=== PATIENT | male | born 1960 | race Caucasian/White ===

== ENCOUNTER 2017-03-20 09:59 | Outpatient (CLI) | payer BC ==
--- NOTE | 2017-03-20 14:47 | CT ---
CT OF THE CHEST WITH CONTRAST: Date: 03/20/17 COMPARISON: 12/28/16. HISTORY: Lung cancer. TECHNIQUE: Multiple contiguous axial images were obtained in a CT of the chest with contrast. Coronal reformats were performed. FINDINGS: No pulmonary nodules or masses are seen. No pleural effusion or pneumothorax seen. There is an enlarged lymph node in the right paratracheal region. This has decreased in size compared to the prior examination and now measures 1.9 x 1.5 x 2.7 cm in size. There is a separate nodule adj acent to this larger lymph node measuring 8.0 mm in size. This is also unchanged. No other enlarged o r pathologic mediastinal or hilar lymph nodes are seen. There are large cysts in both kidneys. The other visualized subdiaphragmatic structures are unremarka ble. Degenerative changes are seen in the spine. No suspicious osseous abnormalities are present. The re is a right-sided MediPort with its tip in the superior vena cava. IMPRESSION: 1. Right-sided paratracheal lymphadenopathy has slightly decreased in size. This may represent a par tial response to chemotherapy. 2. Bilateral renal cysts. POS: [facility]
[2017-03-20] MEDS ORDERED: Iopamidol 370 76% 100 ML VIAL ONE (17:20)
== END 2017-03-20 10:00 | disposition home or self-care (01) ==
LOC: CT 09:59
PROVIDERS: ATTEND Internal Medicine Hematology & Oncology
DX: C34.01 Malignant neoplasm of right main bronchus (principal); C80.0 Disseminated malignant neoplasm, unspecified; Z51.89 Encounter for other specified aftercare; N28.1 Cyst of kidney, acquired; R11.0 Nausea; R59.0 Localized enlarged lymph nodes
CPT/HCPCS: 71260

== ENCOUNTER 2017-06-12 16:58 | Inpatient (IN) | payer BC ==
[2017-06-12 17:34] LABS: #Basophils 0.1 thou/uL (0.0-0.2); #Lymphocytes 1.5 thou/uL (1.20-3.40); #Monocytes 0.8 thou/uL (0.11-0.59); #Neutrophils 5.6 thou/uL (1.40-6.50); %Basophils 0.6 % (0.0-1.0); %Eosinophils 0.4 % (0.0-10.0); %Lymphocytes 18.3 % (21.0-51.0); %Monocytes 10.2 % (0.0-10.0); %Neutrophils 70.5 % (42.0-75.0); Mean Corpuscular HGB CONC 35.9 g/dL (32.0-36.0); Mean Corpuscular Hemoglobin 34.1 pg (27.0-31.0); Mean Corpuscular Volume 94.7 fl (80.0-94.0); Mean Platelet Volume 7.2 fL (7.4-10.4); Platelet Count 193 thou/uL (130-400); RBC Distribution Width 10.7 % (11.5-14.5); Red Blood Cell (RBC) Count 3.53 mill/uL (4.70-6.10)
[2017-06-12 17:58] LABS: ALT (SGPT) 29 U/L (8-55); AST (SGOT) 16 U/L (5-34); Albumin 4.3 g/dL (3.5-5.0); Alkaline Phosphatase 63 U/L (40-150); Anion Gap 15 mmol/L (10-20); BUN (Urea Nitrogen) 10 mg/dL (8.4-25.7); Bilirubin, Total 0.9 mg/dL (0.2-1.2); CK (CPK) 135 U/L (30-200); Calc. Creatinine Clearance 0 mL/min (70-130); Calcium 9.4 mg/dL (7.8-10.44); Carbon Dioxide 21 mmol/L (22-29); Chloride 104 mmol/L (98-107); Estimated GFR-MDRD Greater than 90; Globulin 3.4 g/dL (2.4-3.5); Glucose 118 mg/dL (70-105); Potassium 3.9 mmol/L (3.5-5.1); Protein, Total 7.7 g/dL (6.0-8.3); Sodium 136 mmol/L (136-145)
[2017-06-12 18:00] LABS: CKMB 0.5 ng/mL (0-6.6); Troponin I Less than 0.010 ng/mL (< 0.028)
[2017-06-12] MEDS ORDERED: Acetaminophen/Codeine 30-300mg Tablet ONE (18:08)
[2017-06-12] MEDS ORDERED: Ketorolac Tromethamine 30 MG/ML VIAL ONE (18:08)
[2017-06-12] MEDS ORDERED: Piperacillin/Tazobactam 3.375 GM in Sodium Chloride 0.9% 100 ML IVPB SCH (18:15)
--- NOTE | 2017-06-12 18:29 | RAD ---
CHEST 1 VIEW: Date: 06/12/17 HISTORY: Chest pain. COMPARISON: Chest radiograph dated 04/25/16. FINDINGS: Port catheter tip is at the lower SVC. Right basilar infiltrate, new. Small right effusion. No pneumo thorax. Old left-sided rib fractures. Left lung is relatively clear. Mild right paratracheal soft tissue prominence. IMPRESSION: 1. New right lower lobe air space opacity suggesting pneumonia. Follow-up recommended. 2. Right paratracheal soft tissue fullness suggesting adenopathy. POS: [facility]
[2017-06-12] MEDS ORDERED: Albuterol Sulfate 2.5 mg/3 ml Neb NEB PRN (19:12)
--- NOTE | 2017-06-12 20:29 | HP ---
DATE OF ADMISSION: 06/12/2017 CHIEF COMPLAINT: Chest pain. HISTORY OF PRESENT ILLNESS: This is a 57-year-old white male with a known history of a small cell dre ng cancer diagnosed more than 3 years ago when he had a headache and was diagnosed with a brain tumor . Following a biopsy, it was noted that the patient had metastatic lesions from the small cell cance r. The patient is on pilot point based chemotherapy until last year September, it was changed to Opdivo whic h he takes twice a month infusion. The patient sees Dr. Be as oncologist and for the past few d ays, he was noticing that he was having some chest pain associated with some shortness of breath with no fever. Today, he was noted to have a fever of 100.1 and with nonproductive cough with worsening chest pain which is pleuritic in nature, the pain is more in the right precordium and it radiates to the right shoulder and sometimes to the right side of the jaw. The patient is here along with his wi fe. He is alert and oriented, did not appear to be in any acute distress. He is not short of breath at this time. His saturations have been 99% on room air. He denies having any nausea, vomiting, di arrhea or constipation. Denies having any dizziness, no headache. No fever with chills or rigors at home. PAST MEDICAL HISTORY: 1. 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 2. History of hypertension. PAST SURGICAL HISTORY: The patient had a history of craniotomy, brain tumor removal following with r adiation therapy. Otherwise, no other surgical procedures in the past. SOCIAL HISTORY: The patient is a known smoker. Smoked one pack per day until 3 years ago when he wa s diagnosed with brain cancer. He does drink alcohol occasionally. No history of illicit drug use. FAMILY HISTORY: Mother with pancreatic cancer. 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 REVIEW OF SYSTEMS: All 12 systems are reviewed with the patient thoroughly and found to be negative at this time except the ones described in HPI. The following complete review of systems was negative , unless otherwise mentioned in the HPI or below: Constitutional: Weight loss or gain, sense of wel l-being, ability to conduct usual activities, exercise tolerance. Skin/Breast: Rash, itching, pradhan es in hair growth or loss, nail changes, breast lumps, tenderness, swelling, nipple discharge. Eyes: Vision, double vision, tearing, blind spots, pain. ENT/Mouth: Headaches (location, time of onset, duration, precipitating factors), vertigo, lightheade dness, injury. Vision, double vision, tearing, blind spots, pain, nose bleeding, colds, obstruction, discharge, dental difficulties, gingival bleeding, dentures, neck stiffness, pain, tenderness, masses in thyroid or other areas. Cardiovascular: Precordial pain, substernal distress, palpitations, syn cope, dyspnea on exertion, orthopnea, nocturnal paroxysmal dyspnea, edema, cyanosis, hypertension, he art murmurs, varicosities, phlebitis, claudication. Respiratory: Pain, shortness of breath, wheezin g, stridor, cough, hemoptysis, fever or night sweats. Gastrointestinal: Poor appetite, dysphagia, i ndigestion, abdominal pain, heartburn, eructation, nausea, vomiting, hematemesis, jaundice, constipat ion, or diarrhea, abnormal stools (clyde-colored, tarry, bloody, greasy, foul smelling), flatulence, h emorrhoids, recent changes in bowel habits. Genitourinary: Urgency, frequency, dysuria, nocturia, h ematuria, polyuria, oliguria, unusual (or change in) color of urine, stones, hesitancy, change in siz e of stream, dribbling, acute retention or incontinence, libido, potency. Musculoskeletal: Pain, sw elling, redness or heat of muscles or joints, limitation, of motion, muscular weakness, atrophy, cram ps. Neurologic/Psychiatric: Convulsions, paralyses, tremor, incoordination, parasthesias, difficult ies with memory of speech, sensory or motor disturbances, or muscular coordination (ataxia, tremor), emotional problems, anxiety, depression, previous psychiatric care, unusual perceptions, hallucinatio ns. Allergy/Immunologic: Skin rash, anemia, bleeding tendency, polydipsia, polyuria, intolerance to heat or cold. ALLERGIES: Patient has allergy to IODINATED CONTRAST, ORAL and IV DYES. HOME MEDICATIONS: 1. Cetirizine 10 mg p.o. p.r.n. 2. Zantac 150 mg p.o. b.i.d. 3. Tylenol #3. PHYSICAL EXAMINATION: VITAL SIGNS: Blood pressures were 110/80, heart rate is 88, respiratory rate 18, saturation is 98% o n room air. GENERAL: The patient is moderately built and moderately nourished. He does not appear to have any a cute distress at this time. HEENT: Atraumatic, normocephalic, PERRLA. Extraocular muscles were intact. Oral mucosa pink and mo ist. CARDIOVASCULAR: S1, S2 normal. No murmurs, rubs or gallops. LUNGS: Bilateral air entry was equal. No wheezing, no crackles. ABDOMEN: Soft, nontender, no guarding, no rebound tenderness. Bowel sounds normal. MUSCULOSKELETAL: No calf tenderness. No pedal edema. No joint tenderness, no joint swelling. SKIN: No cyanosis, no erythema, no rash, no pallor. NEUROLOGIC: Cranial nerve examination II-XII intact. No focal deficits are noted at this time. PSYCHIATRIC: No signs of suicidal ideation. No signs of mike. LYMPHADENOPATHY: No evidence of any generalized lymph nodes were noted. Axillary and cervical lymph nodes were checked were normal. LABORATORY DATA: WBC 8.0, hemoglobin is 12.0, platelets 193. Sodium 136, potassium 3.9, chloride is 104, BUN is 10, creatinine 0.83, blood sugar is 118. Troponin 0.010. A chest x-ray was done showing an evidence of new right lower lobe airspace opacity suggesting pneumo heber, right paratracheal soft tissue fullness suggesting adenopathy was also noted. ASSESSMENT: 1. Acute right lung pneumonia. 2. Acute right lung pneumonia in immunocompromised patient. 3. History of small cell cancer, on chemotherapy. 4. Hypertension. 5. Pleuritic chest pain. PLAN: 1. Plan is to closely monitor this patient as the patient is immunocompromised because of the chemot herapy and patient would not have a good immune response at this time. We will treat the patient wit h IV antibiotics to cover Pseudomonas. We will start the patient on Levofloxacin 750 mg IV daily and also cefepime 2 grams q.12 hours. We will continue the DuoNeb nebulizer treatments every 4 hours an d albuterol nebs every 2 hours as needed. 2. We will send for blood cultures and sputum cultures. 3. Patient has severe pleuritic chest pain. We will treat with Morrill as the patient's pain was cont rolled with Tylenol. We will do Morrill or Tylenol as needed. We will do a PT and OT evaluation in th e morning. 4. DVT prophylaxis. Lovenox 40 mg subcu daily. Dictating physician, Enio Diaz, has spent 75 minutes with this patient.
[2017-06-12] MEDS ORDERED: Cefepime 2 GM in Sodium Chloride 0.9% 100 ML IVPB SCH (21:12)
[2017-06-12] MEDS ORDERED: Ondansetron HCl/PF 4 MG/2 ML Vial IVP PRN (21:12)
[2017-06-12] MEDS ORDERED: Docusate 100 MG CAP PO SCH (21:30)
[2017-06-12] MEDS ORDERED: Famotidine/PF 20 mg/2ml Vial SLOW IVP SCH (21:30)
[2017-06-12] MEDS: HYDROcodone/Acetaminophen 5/325 mg Tablet PO PRN (21:35)
[2017-06-12] MEDS: Sodium Chloride 0.9% 1,000 ML IV SCH (21:36)
[2017-06-12] MEDS: Cefepime 2 GM, Syringe 2.5 ML in Sodium Chloride 0.9% 10 ML SLOW IVP SCH (22:58)
[2017-06-13 00:36] VITALS: BMI 32.3
[2017-06-13] MEDS ORDERED: Acetaminophen/Codeine 30-300mg Tablet PO SCH (01:00)
[2017-06-13] MEDS: Sodium Chloride 0.9% 1,000 ML IV SCH ×2 (05:28→08:36)
[2017-06-13 06:06] LABS: #Lymphocytes 0.9 thou/uL (1.20-3.40); #Monocytes 0.7 thou/uL (0.11-0.59); #Neutrophils 4.5 thou/uL (1.40-6.50); %Eosinophils 0.5 % (0.0-10.0); %Monocytes 11.3 % (0.0-10.0); %Neutrophils 73.2 % (42.0-75.0); Anion Gap 12 mmol/L (10-20); BUN (Urea Nitrogen) 11 mg/dL (8.4-25.7); Calc. Creatinine Clearance 131 mL/min (70-130); Calcium 8.4 mg/dL (7.8-10.44); Carbon Dioxide 23 mmol/L (22-29); Chloride 103 mmol/L (98-107); Estimated GFR-MDRD 87; Glucose 111 mg/dL (70-105); Hemoglobin 9.6 g/dL (14.0-18.0); Mean Corpuscular HGB CONC 34.9 g/dL (32.0-36.0); Mean Corpuscular Hemoglobin 33.6 pg (27.0-31.0); Mean Corpuscular Volume 96.2 fl (80.0-94.0); Mean Platelet Volume 7.1 fL (7.4-10.4); Platelet Count 139 thou/uL (130-400); Potassium 3.9 mmol/L (3.5-5.1); RBC Distribution Width 10.7 % (11.5-14.5); Red Blood Cell (RBC) Count 2.86 mill/uL (4.70-6.10); Sodium 134 mmol/L (136-145); White Blood Cell (WBC) Count 6.1 thou/uL (4.8-10.8)
[2017-06-13] MEDS: HYDROcodone/Acetaminophen 5/325 mg Tablet PO PRN ×4 (06:16→22:14)
[2017-06-13] MEDS ORDERED: Morphine 5 MG/ML SYRINGE SLOW IVP PRN (07:42)
[2017-06-13] MEDS: Famotidine/PF 20 mg/2ml Vial SLOW IVP SCH ×2 (07:45→20:24)
[2017-06-13] MEDS: Docusate 100 MG CAP PO SCH ×2 (07:45→20:24)
[2017-06-13] MEDS: Cefepime 2 GM, Syringe 2.5 ML in Sodium Chloride 0.9% 10 ML SLOW IVP SCH ×2 (08:26→22:14)
[2017-06-13] MEDS ORDERED: Enoxaparin Sodium 40 MG/0.4 ML SYRINGE SC SCH (09:00)
--- NOTE | 2017-06-13 13:48 | PDOC.PN ---
- Subjective Encounter Start Date: 06/13/17 Encounter Start Time: 13:00 Patient is seen today, alert and oriented. He c/o persistant Chest pain Right Precordium, Pleuritic pain 10/10 he says worse on breathing. Likley PE/ or pneumonia with pleurisy. - Objective Resuscitation Status: Resuscitation Status FULL:Full Resuscitation MAR Reviewed: Yes Vital Signs & Weight: Vital Signs (12 hours) Temp Pulse Pulse Pulse Pulse Resp BP 06/13/17 13:30 99.5 F 124 H 18 06/13/17 12:00 99.3 F 78 18 06/13/17 10:18 100 14 06/13/17 08:50 99.8 F H 06/13/17 08:00 98.8 F 102 H 22 H 06/13/17 07:51 100.4 F H 102 H 22 H 06/13/17 07:07 106 H 109 H 104 H 122/80 06/13/17 06:12 93 14 06/13/17 04:00 100.1 F H 105 H 20 06/13/17 02:19 12 BP BP BP Pulse Ox Pulse Ox Pulse Ox Pulse Ox 06/13/17 13:30 162/94 H 94 L 06/13/17 12:00 136/85 96 06/13/17 10:18 06/13/17 08:50 06/13/17 08:00 06/13/17 07:51 131/84 92 L 06/13/17 07:07 113/82 131/84 90 L 92 L 92 L 06/13/17 06:12 94 L 06/13/17 04:00 112/74 92 L 06/13/17 02:19 Weight Weight 225 lb I&O: 06/12/17 06/13/17 06/14/17 06:59 06:59 06:59 Intake Total 1750 Balance 1750 Result Diagrams: 06/13/17 04:55 06/13/17 04:55 Radiology Reviewed by me: Yes Phys Exam - Physical Examination HEENT: PERRLA, moist MMs Neck: no nodes, no JVD Respiratory: no rales, no rhonchi, wheezing present, clear to auscultation bilateral Cardiovascular: RRR, no significant murmur Gastrointestinal: soft, non-tender Musculoskeletal: no edema, pulses present Neurological: non-focal, normal sensation Dx/Plan (1) Acute respiratory failure with hypoxia Code(s): J96.01 - ACUTE RESPIRATORY FAILURE WITH HYPOXIA Status: Acute Comment: PT is on Nasal Canula 2 literes, Likely from hypoventilation due to pleurtitic pain, but also could be PE, with H/o Small cell Ca on Chemotherapy. (2) Pneumonia involving right lung Code(s): J18.9 - PNEUMONIA, UNSPECIFIED ORGANISM Status: Acute Qualifiers: Lung location: middle lobe of lung Comment: Pt will be continue On IV antibitiotics Cefepime and Levofloxacin , Will continue with neb treamtent, Will repeat Chest xray to look for any worseing of Pneumonia , Will consult Pulmonary for any further recommedations,. (3) Pleurisy without effusion Code(s): R09.1 - PLEURISY Status: Acute Comment: Pain is 10/10 will do morphine 3-4 mg Iv prn. (4) Pulmonary embolism and infarction Code(s): I26.99 - OTHER PULMONARY EMBOLISM WITHOUT ACUTE COR PULMONALE Status : Acute Comment: ordered CT chest with controast, as ptis allergic to Iodone contrast, will do Benedryl/ prednisolone, CT will be delayed, so will start emperically on Lovenox 1 mg/ kg BID a spt is high risk for PE or pulmonary infarction. (5) Anemia Code(s): D64.9 - ANEMIA, UNSPECIFIED Status: Acute Comment: Likely Dilutional or marrow Suppresion, will check for iron levels, No other source of Bkeeding noted. - Plan cont current plan of care, continue antibiotics, PT/OT, social human services assistants, respiratory therapy, incentive spirometry, DVT proph w/lovenox * . - Discharge Day Encounter end time: 13:35 Review of Systems - Review of Systems Constitutional: negative: fever, chills, sweats, weakness, malaise, other Eyes: negative: Pain, Vision Change, Conjunctivae Inflammation, Eyelid Inflammation, Redness, Other Respiratory: Cough, Shortness of Breath, Pleuritic Pain Cardiovascular: negative: chest pain, palpitations, orthopnea, paroxysmal nocturnal dyspnea, edema, light headedness, other Gastrointestinal: negative: Nausea, Vomiting, Abdominal Pain, Diarrhea, Constipation, Melena, Hematochezia, Other Genitourinary: negative: Dysuria, Frequency, Incontinence, Hematuria, Retention , Other Musculoskeletal: negative: Neck Pain, Shoulder Pain, Arm Pain, Back Pain, Hand Pain, Leg Pain, Foot Pain, Other Skin: negative: Rash, Lesions, Aric, Bruising, Other - Medications/Allergies Allergies/Adverse Reactions: Allergies Allergy/AdvReac Type Severity Reaction Status Date / Time Iodinated Contrast- Oral and Allergy Mild ITCHING, Verified 04/22/16 11:51 IV Dye THROAT [Iodinated Contrast Media - TINGLING IV Dye] No Known Drug Allergies Allergy Verified 04/22/16 11:51 Medications: Current Medications Hydrocodone Bitart/Acetaminophen ([place] 5/325) 1 tab PO Q4H PRN PRN Reason: Moderate Pain (4-6) Last Admin: 06/13/17 06:16 Dose: 1 tab Albuterol Sulfate (Ventolin) 2.5 mg NEB Q2H PRN PRN Reason: Wheezing Albuterol/Ipratropium (Duoneb) 3 ml NEB [id number] [facility] Last Admin: 06/13/17 10:18 Dose: 3 ml Docusate Sodium (Colace) 100 mg PO BID [facility] Last Admin: 06/13/17 07:45 Dose: 100 mg Enoxaparin Sodium (Lovenox) 40 mg SC 0900 [facility] Famotidine (Pepcid) 20 mg SLOW IVP Q12HR [facility] Last Admin: 06/13/17 07:45 Dose: 20 mg Levofloxacin 750 mg/ Device 150 mls @ 100 mls/hr IVPB 2200 [facility] Last Admin: 06/12/17 21:35 Dose: 150 mls Sodium Chloride (Normal Saline 0.9%) 1,000 mls @ 100 mls/hr IV .Q10H [facility] Last Admin: 06/13/17 08:36 Dose: 1,000 mls Cefepime HCl 2 gm/ Syringe 2.5 (ml/ Sodium Chloride) 12.5 mls @ 150 mls/hr SLOW IVP 1000,2200 [facility] Last Admin: 06/13/17 08:26 Dose: 12.5 mls Morphine Sulfate (Morphine) 4 mg SLOW IVP Q4H PRN PRN Reason: Pain Last Admin: 06/13/17 08:24 Dose: 4 mg Ondansetron HCl (Zofran) 4 mg IVP Q6H PRN PRN Reason: Nausea/Vomiting Sodium Chloride (Flush - Normal Saline) 10 ml IVF PRN PRN PRN Reason: Saline Flush
--- NOTE | 2017-06-13 14:20 | RAD ---
RADIOGRAPH CHEST 1 VIEW: Date: 06/13/17 Time: 1339 HOURS HISTORY: 57-year-old male with chest pain. COMPARISON: 06/12/17 at 1708 hours. FINDINGS: The previously demonstrated right lower lobe air space density has become somewhat more dense. It now has a sharply demarcated, transversely oriented superior border, suggesting that this probably repre sents atelectasis. There is a greater degree of elevation of the right hemidiaphragm now than before, supporting the diagnosis of atelectasis. Right subclavian implantable vascular access port remains w ith distal tip at the SVC/right atrial junction. No pulmonary edema or pneumothorax. The left upper l obe is clear. There has been interval development of streaky air space densities at the medial basila r aspect of the retrocardiac left lower lobe. IMPRESSION: 1. Interval progression of a large region of right lower lobe atelectasis. 2. Interval development of small pulmonary density at the medial base of the left lower lobe, perhap s also representing atelectasis. JN [] POS: [facility]
[2017-06-13 14:47] LABS: Reticulocyte Count 1.6 % (0.5-1.5)
[2017-06-13 14:51] LABS: #Lymphocytes 0.9 thou/uL (1.20-3.40); #Monocytes 1.1 thou/uL (0.11-0.59); #Neutrophils 8.4 thou/uL (1.40-6.50); %Basophils 0.3 % (0.0-1.0); %Monocytes 10.1 % (0.0-10.0); %Neutrophils 80.5 % (42.0-75.0); Hemoglobin 10.6 g/dL (14.0-18.0); Mean Corpuscular HGB CONC 34.3 g/dL (32.0-36.0); Mean Corpuscular Hemoglobin 33.4 pg (27.0-31.0); Mean Corpuscular Volume 97.4 fl (80.0-94.0); Mean Platelet Volume 7.1 fL (7.4-10.4); Platelet Count 160 thou/uL (130-400); RBC Distribution Width 10.9 % (11.5-14.5); Red Blood Cell (RBC) Count 3.17 mill/uL (4.70-6.10); White Blood Cell (WBC) Count 10.4 thou/uL (4.8-10.8)
[2017-06-13 15:06] LABS: Iron 28 ug/dL (65-175); Iron Binding Capacity, Total 236 mcg/dL (261-462)
[2017-06-13] MEDS ORDERED: Acetaminophen 500 MG TAB PO PRN (15:30)
[2017-06-13] MEDS: Enoxaparin Sodium 100 MG/ML SYRINGE SC SCH (15:55)
--- NOTE | 2017-06-13 17:37 | CON ---
DATE OF CONSULTATION: 06/13/2017 A 70 minutes time was spent performing this consultation. Over that 70 minutes, 50% of that time was spent with the patient and/or on the patient's unit in the Hospital. REASON FOR CONSULTATION: Chest pain and pneumonia. HISTORY OF PRESENT ILLNESS: Mr. Alejandro is a pleasant 57-year-old male who is able to provide his tory to me. His is at the bedside. She also is able to give some history to me. I have also r eviewed the notes from Dr. Diaz in the chart. This gentleman was admitted to the hospital yesterday with chest pain that started 3 days prior to ad mission. He has had a cough that has been nonproductive in nature. Chest pain has been isolated to the right precordial area inferiorly and also to the right shoulder area. He has had low grade fever up to 100.8. Prior to this, he has been feeling okay. His pulmonary history is remarkable for diagnosis of small cell lung cancer/neuroendocrine tumor in h is mediastinum with metastasis to the brain. He had resection of the brain component of the tumor of 2013. He is followed by Dr. Be. PAST MEDICAL HISTORY: 1. Neuroendocrine cancer with metastasis to the brain. 2. Hypertension. PAST SURGICAL HISTORY: Craniotomy for brain tumor resection. SOCIAL HISTORY: Patient smoked 1 pack per day until about 4 years ago. He has continued to smoke li ghtly on and off until 04/2017 when he quit completely. He very occasionally drinks alcohol. He is disabled secondary to his cancer diagnosis. He has no history of drug use. FAMILY MEDICAL HISTORY: Remarkable for mother with pancreatic cancer. MEDICATIONS: Prior to admission, cetirizine 10 mg daily as needed, Zantac 150 mg twice daily, Tyleno l #3 as needed for pain. REVIEW OF SYSTEMS: Twelve point review of systems otherwise negative except stated in the history of present illness. PHYSICAL EXAMINATION: VITAL SIGNS: Temperature was 100.8, pulse 120, respirations 18, O2 sat 92% on room air, improved to about 94% on 2 liters, blood pressure 162/94. GENERAL: He is awake and alert. He is in no acute distress. HEENT: Pupils react. Sclerae anicteric. Oropharynx clear. NECK: Without adenopathy. No palpable lymph nodes, no JVD, no thyromegaly. CARDIAC: S1, S2, tachycardic without murmur, rub or gallop. LUNGS: Clear to auscultation without wheezing or rhonchi. No dullness to percussion at bases. ABDOMEN: Soft, nontender, nondistended. No hepatosplenomegaly. EXTREMITIES: No clubbing, cyanosis or edema. PSYCHIATRY: He is alert and oriented x3. NEUROLOGIC: He moves all 4 extremities without difficulty. SKIN: Shows no obvious lesions. LABORATORY DATA AND X-RAY FINDINGS: White blood cell count 10.4, hemoglobin 10, hematocrit 30, plate let count 160. D-dimer 1.7. Sodium 134, potassium 3.9, chloride 103, CO2 23, BUN 11, creatinine 0.9 , glucose 111. Troponin 0.01. Flu swab was negative for Flu A and B and blood cultures show no grow th to date. I reviewed his most recent chest x-ray film from today. He has right lower lobe atelect asis versus infiltrate. No obvious effusion. ASSESSMENT: 1. Right lower lobe pneumonia. 2. Pleuritic chest pain. 3. History of neuroendocrine tumor. RECOMMENDATIONS: The patient is currently on broad spectrum IV antibiotics, which include cefepime a nd Levaquin. That is probably more than appropriate coverage. He is receiving low flow oxygen thera py. He is scheduled to undergo CT of the chest later today to rule out pulmonary embolism. I think that is a reasonable intervention. He is empirically on anticoagulation through the hospitalist lili buckley the result of the CT pulmonary angiogram is known. There is a late in the CT pulmonary angiogram s econdary to the fact that the patient is allergic to CONTRAST and is having to take a contrast prep. The current tachycardia is likely due to the fever. He will be prescribed some Tylenol to see if j[place] t will help. Thank you for the referral. I will be happy to follow with you.
[2017-06-13] MEDS: predniSONE 50 MG TAB PO SCH (20:24)
--- NOTE | 2017-06-13 20:32 | CON ---
DATE OF CONSULTATION: 06/13/2017 REASON FOR CONSULTATION: Neuroendocrine carcinoma. HISTORY OF PRESENT ILLNESS: Mr. Alejandro is a pleasant 57-year-old gentleman who was diagnosed wit h neuroendocrine carcinoma of the unknown primary with mets to the brain in 2014 was suspected to be a lung primary. He underwent treatment with carboplatin and DIRECTOR OF SOCIAL WORK-16. He went into complete remission, but reoccurred in late 2015. He underwent chemotherapy again, but had progression on CT and he was started on Opdivo immunotherapy in 09/2016. He has remained on Opdivo since that time with stable di sease. He has right paratracheal lymphadenopathy on his last CT. His last Opdivo was on 06/06/2017. On Monday, he began to have a cough progressively worsened on Monday, developed a fever late night, he presented to the emergency room yesterday with fever, cough, and pleuritic chest pain. Chest x-ray showed a new right lower lobe opacity suggestive of pneumonia, I again saw the right para tracheal soft tissue that was present on a prior CT scan. He was started on empiric antibiotics and admitted for further evaluation. Today, he had an acute onset of tachycardia with heart rate in the 120s. There was concern that he developed a pulmonary embolism. Unfortunately, he is allergic to IO DINE, so a CT angio could not be performed stat, but is planned for tomorrow. We were asked to see t he patient for recommendations. PAST MEDICAL HISTORY: 1. Neuroendocrine carcinoma with prior brain mets. 2. Hypertension. 3. Hyperlipidemia. PAST SURGICAL HISTORY: Left frontal craniotomy in 03/2014. ALLERGIES: IODINE. HOME MEDICATIONS: 1. Tylenol #3 p.r.n. 2. Zyrtec 10 mg p.r.n. 3. Zantac 150 mg p.r.n. FAMILY HISTORY: His mother from pancreatic cancer. SOCIAL HISTORY: , has 3 children, lives with his spouse. He is a former smoker. No alcohol, tobacco or illicit drug use at this time. REVIEW OF SYSTEMS: Constitutional: Positive for fever, chills. No night sweats or recent weight lo ss or gain. Eyes: No blurred or double vision. ENT: No pain, hoarseness, sore throat, dysphagia. Cardiovascular: Positive for chest pain. No palpitations or syncope. Respiratory: Positive for s hortness breath, dyspnea on exertion and cough. Gastrointestinal: No nausea, vomiting, diarrhea, co nstipation or abdominal pain. Genitourinary: No dysuria or hematuria. Musculoskeletal: No joint o r back pain. Skin: No rash or pruritus. Hematologic: No bleeding, bruising or clotting. Neurolog ic: Positive for weakness, no headache, numbness, tingling or seizure activity. Psychiatric: No an xiety or depression. PHYSICAL EXAMINATION: VITAL SIGNS: Temperature is 100.8, pulse is 120, respiratory rate 18, BP is 162/94. He is 92% on 2 liters. GENERAL: This is a well-developed, well-nourished male in no acute distress. HEENT: Normocephalic, atraumatic. Pupils are equal and reactive to light. NECK: Supple. HEART: Regular rate and rhythm. LUNGS: He has rhonchi throughout and crackles in his right lower lung posterior. ABDOMEN: Soft, nontender, bowel sounds are positive. EXTREMITIES: No clubbing, cyanosis or edema. SKIN: No rash. HEMATOLOGIC: No petechia or purpura. NEUROLOGICAL: Nonfocal. PSYCHIATRIC: The patient is alert and oriented and appropriate. PERTINENT LABORATORY AND X-RAYS: Current WBCs 10.4, hemoglobin 10.6, hematocrit 30.8, platelet count is 160,000. He has got 81% neutrophils, 9% lymphocytes. Retic count is 1.6. D-dimer is 1.73. Sod ium is 134, potassium 3.9, chloride 103, CO2 is 23, BUN is 11, creatinine 0.9, calcium is 8.4, total bilirubin is 0.9, AST 16, ALT is 29, alkaline phosphatase is 63, creatine kinase is 135, CK-MB 0.5, t roponin less than 0.010. Serum total protein 7.7, albumin 4.3, globulin 3.4. Radiology per HPI. ASSESSMENT PLAN: 1. Neuroendocrine carcinoma, on Opdivo immunotherapy. 2. Pneumonia. DISCUSSION: The patient has been started on antibiotics. He did have an acute change in his heart r ate today, although he did develop a fever as well. A CT angio is planned for tomorrow to rule out P E. He is allergic to IODINE, so we will undergo the protocol with prednisone and Benadryl. He has b een started on full dose Lovenox. There is no evidence of infiltrates on the chest x-ray; however, p neumonitis from immunotherapy is always a concern. He has been started on IV steroids. We will awai t the results of the CT angio and follow his hospital course closely. Thank you for the consult.
[2017-06-14] MEDS: predniSONE 50 MG TAB PO SCH ×2 (02:05→07:44)
[2017-06-14] MEDS: HYDROcodone/Acetaminophen 5/325 mg Tablet PO PRN ×4 (02:06→20:00)
[2017-06-14] MEDS: Sodium Chloride 0.9% 1,000 ML IV SCH ×3 (03:20→22:06)
[2017-06-14 05:39] LABS: #Lymphocytes 0.7 thou/uL (1.20-3.40); #Monocytes 0.4 thou/uL (0.11-0.59); #Neutrophils 7.2 thou/uL (1.40-6.50); %Basophils 0.1 % (0.0-1.0); %Eosinophils 0.2 % (0.0-10.0); %Monocytes 4.7 % (0.0-10.0); Hemoglobin 9.7 g/dL (14.0-18.0); Mean Corpuscular HGB CONC 35.4 g/dL (32.0-36.0); Mean Corpuscular Hemoglobin 34.4 pg (27.0-31.0); Mean Platelet Volume 7.3 fL (7.4-10.4); Platelet Count 142 thou/uL (130-400); RBC Distribution Width 10.7 % (11.5-14.5); Red Blood Cell (RBC) Count 2.83 mill/uL (4.70-6.10); White Blood Cell (WBC) Count 8.3 thou/uL (4.8-10.8)
[2017-06-14 05:51] LABS: Anion Gap 13 mmol/L (10-20); BUN (Urea Nitrogen) 8 mg/dL (8.4-25.7); Calc. Creatinine Clearance 151 mL/min (70-130); Calcium 8.9 mg/dL (7.8-10.44); Carbon Dioxide 21 mmol/L (22-29); Chloride 104 mmol/L (98-107); Estimated GFR-MDRD Greater than 90; Glucose 177 mg/dL (70-105); Potassium 3.6 mmol/L (3.5-5.1); Sodium 134 mmol/L (136-145)
[2017-06-14] MEDS: Famotidine/PF 20 mg/2ml Vial SLOW IVP SCH (07:46)
[2017-06-14] MEDS: Docusate 100 MG CAP PO SCH ×2 (07:46→20:01)
[2017-06-14] MEDS: Enoxaparin Sodium 100 MG/ML SYRINGE SC SCH (07:47)
[2017-06-14] MEDS ORDERED: diphenhydrAMINE 50 MG CAP PO SCH (08:00)
[2017-06-14] MEDS: Cefepime 2 GM, Syringe 2.5 ML in Sodium Chloride 0.9% 10 ML SLOW IVP SCH ×2 (09:38→22:04)
--- NOTE | 2017-06-14 10:16 | PRG ---
DATE OF SERVICE: 06/14/2017 SUBJECTIVE: He continues to have right-sided chest pain. His fever did come down overnight. PHYSICAL EXAMINATION: VITAL SIGNS: Temperature is 98.7, pulse 80, respiration 20, O2 sat 90% on 3 liters, blood pressure 1 36/76. HEENT: Unremarkable. NECK: No JVD. LUNGS: Diminished breath sounds on right base, left side clear. CARDIOVASCULAR: S1, S2 regular. ABDOMEN: Soft. EXTREMITIES: No edema. LABORATORY DATA: CT pulmonary angiogram shows a large right mainstem pulmonary embolism. He has an infiltrate with air bronchograms in the right lower lobe. He has a small right pleural effusion. No evidence of kulwant disease. White blood cell count is 8.3, hematocrit 27.5, platelet count 142. Sod ium 134, potassium 3.6, BUN 8, creatinine 0.7, glucose 177. ASSESSMENT: 1. Pulmonary embolism. 2. Right lower lobe pneumonia. 3. Small right pleural effusion. 4. History of small cell lung cancer. RECOMMENDATION: I would treat him with anticoagulation for at least 6 months and perhaps even furthe r since this is a cancer associated pulmonary embolism. He needs to be on Eliquis 10 mg twice daily for a week and then 5 mg twice daily thereafter. He needs to complete treatment for the pneumonia wi th antibiotics. He can convert over to oral antibiotics as soon as it is deemed practical. The pleu ral effusion does not require thoracentesis at this time. He will need a followup CT pulmonary angio gram in about 6-8 weeks. This can be done through my office. The risk of anticoagulation was explai eve to the patient. I spent 30 minutes speaking to the patient.
--- NOTE | 2017-06-14 11:03 | CT ---
CT ANGIO CHEST WITH CONTRAST: Technique: Multiple axial tomograms were obtained through the chest following pulmonary angio protoco l. Multiplanar reconstruction post processing performed. History: Shortness of breath. Chest. History of brain tumor. Assess for pulmonary embolus. Comparison: Chest CT 03-20-17 FINDINGS: Pulmonary arteries are adequately opacified. There is a large pulmonary embolus in the right main pul monary artery with extension into the descending segment of the right pulmonary artery with extension into right lower lobe pulmonary arteries. No definite embolus identified on the left. There is dense consolidation of the right lower lobe with small right effusion. Left lung appears clear of infiltrate with some minimal atelectatic changes in the posterior left bas e. Mediastinum is unremarkable. Osseous structures are unremarkable. IMPRESSION: 1. Pulmonary embolus in the right pulmonary artery with extension into the right descending and right lower lobe pulmonary arteries. 2. Dense consolidation in the right lower lobe with small right effusion. Dr. Diaz is being paged for notification at the time of this dictation. POS: ELIEZER
--- NOTE | 2017-06-14 13:15 | PDOC.PN ---
- Subjective Encounter Start Date: 06/14/17 Encounter Start Time: 11:00 Patient is seen today, alert and oriented. He did had PE on CT, hisw pain is Improved today, Pt is on Lovenox, plan to Be changed to Eliquis as long as his insurenace covers. - Objective Resuscitation Status: Resuscitation Status FULL:Full Resuscitation MAR Reviewed: Yes Vital Signs & Weight: Vital Signs (12 hours) Temp Pulse Resp BP Pulse Ox 06/14/17 11:10 95 20 96 06/14/17 10:52 98.2 F 93 18 105/70 95 06/14/17 08:05 88 20 98 06/14/17 07:39 98.7 F 92 18 136/76 98 06/14/17 07:14 99.2 F 97 20 06/14/17 02:06 97 20 95 Weight Weight 225 lb I&O: 06/13/17 06/14/17 06/15/17 06:59 06:59 06:59 Intake Total 1750 Balance 1750 Result Diagrams: 06/14/17 04:50 06/14/17 04:50 Radiology Reviewed by me: Yes Phys Exam - Physical Examination HEENT: PERRLA, moist MMs Neck: no nodes, no JVD Respiratory: no rhonchi, wheezing present Cardiovascular: RRR, no significant murmur Gastrointestinal: soft, non-tender Musculoskeletal: no edema, pulses present Neurological: non-focal, normal sensation Dx/Plan (1) Acute respiratory failure with hypoxia Code(s): J96.01 - ACUTE RESPIRATORY FAILURE WITH HYPOXIA Status: Acute Comment: PT is on Nasal Canula 2 literes, Likely from hypoventilation due to pleurtitic pain, with H/o Small cell Ca on Chemotherapy. Pt had PE diagnosed on Right Lung. Will continue to Monitor with AC. (2) Pneumonia involving right lung Code(s): J18.9 - PNEUMONIA, UNSPECIFIED ORGANISM Status: Acute Qualifiers: Lung location: middle lobe of lung Comment: Pt will be continue On IV antibitiotics Cefepime and Levofloxacin , Will continue with neb treamtent, Plan to change to oral antibioitics tomorrow if pt Feevr free for 24hrs. (3) Pleurisy without effusion Code(s): R09.1 - PLEURISY Status: Acute Comment: Pain is 10/10 will do morphine 3-4 mg Iv prn. (4) Pulmonary embolism and infarction Code(s): I26.99 - OTHER PULMONARY EMBOLISM WITHOUT ACUTE COR PULMONALE Status : Acute Comment: on Lovenox 1 mg/ kg BID , Plan to change to Eliquis 10mg PO BID for 1 week and 5mg BID after for 6 months, Plan per Dr. Spence. (5) Anemia Code(s): D64.9 - ANEMIA, UNSPECIFIED Status: Acute Comment: iron levels low , No other source of Bkeeding noted.Will start Feroous sulphate 325mg BID. 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 - Discharge Day Encounter end time: 11:35 Review of Systems - Review of Systems Constitutional: fever Eyes: negative: Pain, Vision Change, Conjunctivae Inflammation, Eyelid Inflammation, Redness, Other ENT: negative: Ear Pain, Ear Discharge, Nose Pain, Nose Discharge, Nose Congestion, Mouth Pain, Mouth Swelling, Throat Pain, Throat Swelling, Other Respiratory: Shortness of Breath, SOB with Excertion, Pleuritic Pain, Wheezing Cardiovascular: negative: chest pain, palpitations, orthopnea, paroxysmal nocturnal dyspnea, edema, light headedness, other Gastrointestinal: negative: Nausea, Vomiting, Abdominal Pain, Diarrhea, Constipation, Melena, Hematochezia, Other Genitourinary: negative: Dysuria, Frequency, Incontinence, Hematuria, Retention , Other Musculoskeletal: negative: Neck Pain, Shoulder Pain, Arm Pain, Back Pain, Hand Pain, Leg Pain, Foot Pain, Other Skin: negative: Rash, Lesions, Aric, Bruising, Other Neurological: negative: Weakness, Numbness, Incoordination, Change in Speech, Confusion, Seizures, Other - Medications/Allergies Allergies/Adverse Reactions: Allergies Allergy/AdvReac Type Severity Reaction Status Date / Time Iodinated Contrast- Oral and Allergy Mild ITCHING, Verified 04/22/16 11:51 IV Dye THROAT [Iodinated Contrast Media - [place] IV Dye] No Known Drug Allergies Allergy Verified 04/22/16 11:51 Medications: Current Medications Acetaminophen (Tylenol) 1,000 mg PO Q6H PRN PRN Reason: Fever/Mild Pain Last Admin: 06/13/17 16:00 Dose: 1,000 mg Hydrocodone Bitart/Acetaminophen ([place] 5/325) 1 tab PO Q4H PRN PRN Reason: Moderate Pain (4-6) Last Admin: 06/14/17 12:52 Dose: 1 tab Albuterol Sulfate (Ventolin) 2.5 mg NEB Q2H PRN PRN Reason: Wheezing Albuterol/Ipratropium (Duoneb) 3 ml NEB Q7PH-ML [facility] Last Admin: 06/14/17 11:10 Dose: 3 ml Apixaban (Eliquis) 10 mg PO BID [facility] Docusate Sodium (Colace) 100 mg PO BID [facility] Last Admin: 06/14/17 07:46 Dose: 100 mg Famotidine (Pepcid) 20 mg PO BID [facility] Ferrous Sulfate (Feosol) 325 mg PO BID-[facility] Sodium Chloride (Normal Saline 0.9%) 1,000 mls @ 100 mls/hr IV .Q10H [facility] Last Admin: 06/14/17 11:35 Dose: 1,000 mls Cefepime HCl 2 gm/ Syringe 2.5 (ml/ Sodium Chloride) 12.5 mls @ 150 mls/hr SLOW IVP 1000,2200 [facility] Last Admin: 06/14/17 09:38 Dose: 12.5 mls Levofloxacin (Levaquin) 750 mg PO 2100 [facility] Methylprednisolone Sodium Succinate (Solu-Medrol) 20 mg IVP Q6HR [facility] Last Admin: 06/14/17 10:52 Dose: 20 mg Morphine Sulfate (Morphine) 4 mg SLOW IVP Q4H PRN PRN Reason: Pain Last Admin: 06/13/17 08:24 Dose: 4 mg Ondansetron HCl (Zofran) 4 mg IVP Q6H PRN PRN Reason: Nausea/Vomiting Last Admin: 06/13/17 19:04 Dose: 4 mg Sodium Chloride (Flush - Normal Saline) 10 ml IVF PRN PRN PRN Reason: Saline Flush
[2017-06-14] MEDS: Ferrous Sulfate 325 MG TAB PO SCH (17:41)
[2017-06-14] MEDS: Apixaban 5 MG TAB PO SCH (20:00)
[2017-06-14] MEDS: Famotidine 20 MG TAB PO SCH (20:00)
[2017-06-15] MEDS: HYDROcodone/Acetaminophen 5/325 mg Tablet PO PRN ×4 (01:55→22:08)
[2017-06-15 04:24] LABS: #Basophils 0.1 thou/uL (0.0-0.2); #Lymphocytes 0.5 thou/uL (1.20-3.40); #Monocytes 0.5 thou/uL (0.11-0.59); #Neutrophils 7.4 thou/uL (1.40-6.50); %Basophils 0.7 % (0.0-1.0); %Eosinophils 0.1 % (0.0-10.0); %Monocytes 5.5 % (0.0-10.0); %Neutrophils 87.8 % (42.0-75.0); Hemoglobin 8.7 g/dL (14.0-18.0); Mean Corpuscular HGB CONC 35.6 g/dL (32.0-36.0); Mean Corpuscular Hemoglobin 35.4 pg (27.0-31.0); Mean Corpuscular Volume 99.3 fl (80.0-94.0); Mean Platelet Volume 7.6 fL (7.4-10.4); Platelet Count 170 thou/uL (130-400); RBC Distribution Width 10.7 % (11.5-14.5); Red Blood Cell (RBC) Count 2.44 mill/uL (4.70-6.10); White Blood Cell (WBC) Count 8.4 thou/uL (4.8-10.8)
[2017-06-15] MEDS: Apixaban 5 MG TAB PO SCH ×2 (08:36→22:07)
[2017-06-15] MEDS: Docusate 100 MG CAP PO SCH ×2 (08:36→22:10)
[2017-06-15] MEDS: Famotidine 20 MG TAB PO SCH ×2 (08:37→22:08)
[2017-06-15] MEDS: Sodium Chloride 0.9% 1,000 ML IV SCH (08:39)
[2017-06-15] MEDS: Ferrous Sulfate 325 MG TAB PO SCH ×2 (08:40→17:20)
--- NOTE | 2017-06-15 09:17 | PRG ---
DATE OF SERVICE: 06/15/2017 He feels a little better. PHYSICAL EXAMINATION: VITAL SIGNS: Temperature is 97.8, pulse 92, respiration 16, O2 sat 92%, blood pressure 112/74. HEENT: Unremarkable. NECK: No JVD. LUNGS: Inspiratory crackles, right base, left side clear. CARDIAC: S1 and S2 regular. ABDOMEN: Soft. EXTREMITIES: No edema. LABORATORY DATA: White blood cell count 8.4, hematocrit 35.4, platelet count 170. Sodium 134, potas sium 3.6, chloride 104, CO2 21, BUN 8, creatinine 0.7, glucose 177. ASSESSMENT: 1. Large pulmonary embolism. 2. Pulmonary infarction versus right lower lobe pneumonia. 3. Small right pleural effusion. 4. History of small cell lung cancer. 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 2. Continue Eliquis. 3. Likely can go home tomorrow from my standpoint if he does well today.
[2017-06-15] MEDS: Cefdinir 300 MG CAP PO SCH (09:32)
--- NOTE | 2017-06-15 14:05 | PDOC.PN ---
- Subjective Encounter Start Date: 06/15/17 Encounter Start Time: 10:00 PAtient is seen today, alert and oriented. off Of oxygem, no other Concern noted , pain is well controlled. - Objective Resuscitation Status: Resuscitation Status FULL:Full Resuscitation MAR Reviewed: Yes Vital Signs & Weight: Vital Signs (12 hours) Temp Pulse Resp BP Pulse Ox 06/15/17 10:46 90 16 06/15/17 08:00 97.8 F 90 16 92 L 06/15/17 07:33 97.8 F 92 16 112/74 92 L 06/15/17 07:09 100 18 06/15/17 06:00 98.3 F 92 22 H 105/71 93 L Weight Weight 225 lb I&O: 06/14/17 06/15/17 06/16/17 06:59 06:59 06:59 Intake Total 240 Output Total 800 Balance -800 240 Result Diagrams: 06/15/17 03:54 06/14/17 04:50 Radiology Reviewed by me: Yes EKG Reviewed by me: Yes Phys Exam - Physical Examination HEENT: PERRLA, moist MMs Neck: no nodes, no JVD Respiratory: no wheezing, no rales Cardiovascular: RRR, no significant murmur Gastrointestinal: soft, non-tender Musculoskeletal: no edema, pulses present Neurological: non-focal, normal sensation Lymphatic: no nodes Psychiatric: normal affect, A&O x 3 Skin: no rash, normal turgor Dx/Plan (1) Acute respiratory failure with hypoxia Code(s): J96.01 - ACUTE RESPIRATORY FAILURE WITH HYPOXIA Status: Acute Comment: Pt is off of oxygen,Pt had PE diagnosed on Right Lung. Will continue to Monitor with Eliquis. Explained will continue for at least 6 months and follow up with pulmonary (2) Pneumonia involving right lung Code(s): J18.9 - PNEUMONIA, UNSPECIFIED ORGANISM Status: Acute Qualifiers: Lung location: middle lobe of lung Comment: Pt on levofloxacin now , Will continue with [facility] treamtent, COntinue for 7 days total antibiotics. (3) Pleurisy without effusion Code(s): R09.1 - PLEURISY Status: Acute Comment: Pain is improved now on oral narcotics. (4) Pulmonary embolism and infarction Code(s): I26.99 - OTHER PULMONARY EMBOLISM WITHOUT ACUTE COR PULMONALE Status : Acute Comment: on Lovenox 1 mg/ kg BID , Plan to change to Eliquis 10mg PO BID for 1 week and 5mg BID after for 6 months, Plan per Dr. Spence. (5) Anemia Code(s): D64.9 - ANEMIA, UNSPECIFIED Status: Acute Comment: iron levels low , No other source of Bkeeding noted.Will start Feroous sulphate 325mg BID. - Plan cont current plan of care, plan discussed w/ family, continue antibiotics, PT/OT , respiratory therapy, incentive spirometry, out of bed/ambulate, DVT proph w/ lovenox * . - Discharge Day Encounter end time: 10:40 Review of Systems - Review of Systems Eyes: negative: Pain, Vision Change, Conjunctivae Inflammation, Eyelid Inflammation, Redness, Other Respiratory: negative: Cough, Dry, Shortness of Breath, Hemoptysis, SOB with Excertion, Pleuritic Pain, Sputum, Wheezing Cardiovascular: negative: chest pain, palpitations, orthopnea, paroxysmal nocturnal dyspnea, edema, light headedness, other Gastrointestinal: negative: Nausea, Vomiting, Abdominal Pain, Diarrhea, Constipation, Melena, Hematochezia, Other Musculoskeletal: negative: Neck Pain, Shoulder Pain, Arm Pain, Back Pain, Hand Pain, Leg Pain, Foot Pain, Other Skin: negative: Rash, Lesions, Aric, Bruising, Other Neurological: negative: Weakness, Numbness, Incoordination, Change in Speech, Confusion, Seizures, Other - Medications/Allergies Allergies/Adverse Reactions: Allergies Allergy/AdvReac Type Severity Reaction Status Date / Time Iodinated Contrast- Oral and Allergy Mild ITCHING, Verified 04/22/16 11:51 IV Dye THROAT [Iodinated Contrast Media - [place] IV Dye] No Known Drug Allergies Allergy Verified 04/22/16 11:51 Medications: Current Medications Acetaminophen (Tylenol) 1,000 mg PO Q6H PRN PRN Reason: Fever/Mild Pain Last Admin: 06/13/17 16:00 Dose: 1,000 mg Hydrocodone Bitart/Acetaminophen ([place] 5/325) 1 tab PO Q4H PRN PRN Reason: Moderate Pain (4-6) Last Admin: 06/15/17 08:35 Dose: 1 tab Albuterol Sulfate (Ventolin) 2.5 mg NEB Q2H PRN PRN Reason: Wheezing Albuterol/Ipratropium (Duoneb) 3 ml NEB [id number] [facility] Last Admin: 06/15/17 10:46 Dose: 3 ml Apixaban (Eliquis) 10 mg PO BID [facility] Last Admin: 06/15/17 08:36 Dose: 10 mg Cefdinir (Omnicef) 600 mg PO DAILY [facility] Last Admin: 06/15/17 09:32 Dose: 600 mg Docusate Sodium (Colace) 100 mg PO BID [facility] Last Admin: 06/15/17 08:36 Dose: 100 mg Famotidine (Pepcid) 20 mg PO BID [facility] Last Admin: 06/15/17 08:37 Dose: 20 mg Ferrous Sulfate (Feosol) 325 mg PO BID-[facility] Last Admin: 06/15/17 08:40 Dose: 325 mg Levofloxacin (Levaquin) 750 mg PO 2100 [facility] Last Admin: 06/14/17 20:00 Dose: 750 mg Methylprednisolone Sodium Succinate (Solu-Medrol) 20 mg IVP Q6HR [facility] Last Admin: 06/15/17 12:41 Dose: 20 mg Morphine Sulfate (Morphine) 4 mg SLOW IVP Q4H PRN PRN Reason: Pain Last Admin: 06/13/17 08:24 Dose: 4 mg Ondansetron HCl (Zofran) 4 mg IVP Q6H PRN PRN Reason: Nausea/Vomiting Last Admin: 06/13/17 19:04 Dose: 4 mg Sodium Chloride (Flush - Normal Saline) 10 ml IVF PRN PRN PRN Reason: Saline Flush
[2017-06-15] MEDS ORDERED: Bisacodyl 5 MG TAB PO PRN (18:45)
[2017-06-16 07:39] VITALS: BP 130/81; TEMP 98.6
--- NOTE | 2017-06-16 08:40 | PRG ---
DATE OF SERVICE: 06/16/2017 He feels better. He did stub his toe last night, it bled, but the bleeding was stopped with a bandag e. PHYSICAL EXAMINATION: VITAL SIGNS: His temperature is 98.6, pulse 86, respiration 20, O2 sat 93% room air, blood pressure 130/81. HEENT: Unremarkable. NECK: No JVD. LUNGS: A few crackles in the right base, left side clear. CARDIAC: S1 and S2 regular. ABDOMEN: Soft. EXTREMITIES: No edema. LABORATORY DATA: No new labs were done today. ASSESSMENT: 1. Pulmonary embolism. 2. Pneumonia. 3. History of small cell lung cancer. PLAN: He is safe to go home. He needs to complete a total of 1 week of Eliquis 10 mg b.i.d. ([facility] n the hospital and home). At the 7 day chad he needs to begin Eliquis 5 mg b.i.d. His steroids can be stopped. He needs to continue antibiotics for about 1 week. He needs to see me in the office in 2 months for consideration of repeating the CT scan. This is primarily to see if we were dealing wit h pneumonia, pulmonary infarction, or possibly recurrent lung cancer. Duration of anticoagulation wi ll be at least 6 months and perhaps longer.
[2017-06-16] MEDS: Apixaban 5 MG TAB PO SCH (09:08)
[2017-06-16] MEDS: Cefdinir 300 MG CAP PO SCH (09:08)
[2017-06-16] MEDS: Famotidine 20 MG TAB PO SCH (09:09)
[2017-06-16] MEDS: Docusate 100 MG CAP PO SCH (09:09)
[2017-06-16] MEDS: Ferrous Sulfate 325 MG TAB PO SCH (09:09)
--- NOTE | 2017-06-16 14:47 | DIS ---
DATE OF ADMISSION: 06/12/2017 DATE OF DISCHARGE: 06/16/2017 ADMITTING DIAGNOSIS: Acute right lung pneumonia. DISCHARGE DIAGNOSIS: Massive right lung pulmonary embolism. SECONDARY DIAGNOSES 1. Hypertension. 2. Pleuritic chest pain. 3. History of small cell cancer. 4. History of immunocompromised patient. CONSULTANTS INVOLVED IN THE CARE: Dr. Kevin Spence. INVESTIGATIONS DONE DURING THIS ADMISSION: CTA of the chest showing an evidence of a massive pulmona ry embolus with possible signs of worsening consolidation or possible pulmonary infarction. HISTORY OF PRESENT ILLNESS AND HOSPITAL COURSE: In brief, this is a 57-year-old white male with know n history of small cell lung cancer diagnosed more than 3 years ago when he had headache and was also diagnosed with a brain tumor at that time. The patient was on [place] based chemotherapy until and in September, he was changed to Opdivo which he takes twice a month infusion. The patient sees Dr. Be as Oncology and for the past 3 days, he was noticing that he was having some chest pain associated with shortness of breath with no fever. Today, he was noticed to have fever of 100.1 and with a nonproductive cough, so he decided to come to the hospital for further evaluation. The patien t had persistent pain in the right chest, more of pleuritic in nature initially and was saturating 99 % on room air. He was admitted and was started for treatment with pneumonia. Because of immunocompr omised state, he was started on broad-spectrum antibiotics with cefepime and levofloxacin. As the joel gaxiola's chest pain was getting worse and was more than a pleuritic chest pain, a CT of the chest was ordered which did show an evidence of pulmonary embolus and the patient was started on Lovenox before even the patient was diagnosed with PE as there was a high clinical suspicion. The patient had neymar rgy to contrast dye, so prednisolone and Benadryl was also given. During this time, Pulmonary was co nsulted because of the worsening chest pain and shortness of breath, and Dr. Spence suggested the joel gaxiola should be on Eliquis and should be continued on Eliquis for at least 6 months. We closely foll owed the patient until discharge. On the day of discharge, the patient's oral antibiotics were pradhan ed to cefdinir and the patient was advised to continue this for at least 1 week to complete the cours e. I advised to continue on the Eliquis for 4 more days with 10 mg twice a day and then change to 5 mg p.o. b.i.d. and advised to follow up in 2 months. The patient was stable on day of discharge. PHYSICAL EXAMINATION: VITAL SIGNS: On day of discharge, blood pressures were 130/81, heart rate is 88, respiratory 18, sat uration 98%. CARDIOVASCULAR: S1, S2 normal. No murmurs, rubs or gallops. LUNGS: Bilateral air entry was equal. No wheezing, no crackles. ABDOMEN: Soft, nontender, no guarding, no rebound tenderness. Bowel sounds normal. MUSCULOSKELETAL: No calf tenderness. No pedal edema. No joint tenderness, no joint swelling. DISCHARGE MEDICATIONS: 1. Cetirizine 10 mg p.o. daily. 2. Opdivo infusion. 3. Zantac 150 mg p.o. p.r.n. New discharge medications are, 1. Eliquis 10 mg p.o. b.i.d., continue for 4 more days and then change to 5 mg p.o. b.i.d. 2. Cefdinir 600 mg p.o. daily for 7 more days. 3. Levofloxacin 750 mg p.o. daily for 7 more days. 4. Ferrous sulfate 325 mg p.o. b.i.d. DISCHARGE INSTRUCTIONS: Continue activity as tolerated. Advised to follow up with primary care phys ician in 1-2 weeks. Advised to follow up with Dr. Be in one week. Advised to follow up with a Pulmonary in 2 months. Continue with general diet I spent 35 minutes of this patient.
== END 2017-06-16 11:41 | disposition home or self-care (01) | DRG 193 ==
LOC: ERS 16:58 → T4-B 19:00
PROVIDERS: ADMIT Family Medicine; ATTEND Family Medicine
DX: J18.9 Pneumonia, unspecified organism (principal); I26.99 Other pulmonary embolism without acute cor pulmonale; J96.01 Acute respiratory failure with hypoxia; F17.210 Nicotine dependence, cigarettes, uncomplicated; D64.9 Anemia, unspecified; C34.90 Malignant neoplasm of unspecified part of unspecified bronchus or lung; I10 Essential (primary) hypertension; Z79.01 Long term (current) use of anticoagulants; Z88.8 Allergy status to other drugs, medicaments and biological substances
CPT/HCPCS: 36415; 71045; 71275; 80048; 80053; 82553; 83540; 83550; 84484; 85025; 85046; 85379; 87040; 87070; 87205; 93005; 94640; 94760; 96361; 96365; 96366; 96375; J2270; G8978-GP-CI; G8979-GP-CI; G8980-GP-CI; G8987-GO-CL; G8988-GO-CJ; J0692; J1642; J1650; J1885; J1956; J2405; J2543; J2920; J3370; J7050; J7620; S0028

== ENCOUNTER 2017-06-23 06:46 | Emergency (ER) | payer BC ==
--- NOTE | 2017-06-23 08:13 | RAD ---
PA AND LATERAL: HISTORY: A 57-year-old male with a history of hemoptysis. COMPARISON: CT angio of chest 06/14/17. FINDINGS: Right subclavian catheter and injection port. Persistent but improving alveolar opacity changes in a confluent nature in the right lower lobe with some minimal residual right pleural effusion but showi ng definite improvement from the 06/14/17 study. Stable-appearing left chest. Cardiomegaly. IMPRESSION: Improving right pleural effusion and right lower lobe alveolar opacity changes from prior study. No new process. Continue short-term followup for clearing. POS: ELIEZER
[2017-06-23 08:22] LABS: #Lymphocytes 0.7 thou/uL (1.20-3.40); #Monocytes 0.6 thou/uL (0.11-0.59); %Basophils 0.3 % (0.0-1.0); %Eosinophils 0.8 % (0.0-10.0); %Lymphocytes 12.5 % (21.0-51.0); %Monocytes 11.4 % (0.0-10.0); %Neutrophils 75.1 % (42.0-75.0); Hemoglobin 10.6 g/dL (14.0-18.0); Mean Corpuscular HGB CONC 34.8 g/dL (32.0-36.0); Mean Corpuscular Hemoglobin 34.2 pg (27.0-31.0); Mean Corpuscular Volume 98.3 fl (80.0-94.0); Mean Platelet Volume 7.8 fL (7.4-10.4); Platelet Count 261 thou/uL (130-400); RBC Distribution Width 11.2 % (11.5-14.5); White Blood Cell (WBC) Count 5.3 thou/uL (4.8-10.8)
[2017-06-23 08:34] LABS: INR-International Normal Ratio 1.3; Prothrombin Time 16.1 SEC (12.0-14.7)
[2017-06-23 08:42] LABS: ALT (SGPT) 23 U/L (8-55); AST (SGOT) 14 U/L (5-34); Albumin 3.7 g/dL (3.5-5.0); Alkaline Phosphatase 79 U/L (40-150); Anion Gap 13 mmol/L (10-20); BUN (Urea Nitrogen) 12 mg/dL (8.4-25.7); Bilirubin, Total 0.6 mg/dL (0.2-1.2); Calc. Creatinine Clearance 0 mL/min (70-130); Calcium 9.1 mg/dL (7.8-10.44); Carbon Dioxide 22 mmol/L (22-29); Chloride 99 mmol/L (98-107); Estimated GFR-MDRD Greater than 90; Globulin 3.5 g/dL (2.4-3.5); Glucose 109 mg/dL (70-105); Magnesium 1.9 mg/dL (1.6-2.6); Potassium 4.1 mmol/L (3.5-5.1); Protein, Total 7.2 g/dL (6.0-8.3); Sodium 130 mmol/L (136-145)
[2017-06-23 08:45] LABS: CKMB 0.3 ng/mL (0-6.6); Troponin I Less than 0.010 ng/mL (< 0.028)
[2017-06-23 09:07] LABS: Bilirubin Negative (Negative); Blood, Urine Trace (Negative); Clarity CLEAR (Clear); Glucose, Urine (Dipstick) Negative (Negative); Leukocyte Negative (Negative); Nitrite Negative (Negative); Protein, Urine (Dipstick) Negative (Neg-Trace); Specific Gravity, Urine 1.023 (1.002-1.036); Urobilinogen 0.2 mg/dL (0.2-1.0)
[2017-06-23 09:09] LABS: Bacteria/HPF None Seen HPF (None Seen); Hyaline Casts/LPF 4-6 HYALINE CAST LPF (0-3 Hyaline); Pathc Cast-AUWi Flag 0.13 (0-2.49); RBC/HPF 0-3 HPF (0-3); Squamous Epithelial None Seen HPF (0-3); WBC/HPF 0-3 HPF (0-3)
== END 2017-06-23 11:00 | disposition home or self-care (01) ==
LOC: ERS 06:46
DX: R04.2 Hemoptysis (principal); F17.210 Nicotine dependence, cigarettes, uncomplicated; Z86.711 Personal history of pulmonary embolism; Z85.118 Personal history of other malignant neoplasm of bronchus and lung; Z79.899 Other long term (current) drug therapy
CPT/HCPCS: 36415; 71046; 80053; 81003; 81015; 82553; 83605; 83735; 84484; 85025; 85610; 86850; 86900; 86901; 87040; 93005; 96374; J0696

== ENCOUNTER 2017-08-08 08:48 | Outpatient (CLI) | payer BC ==
--- NOTE | 2017-08-08 10:41 | CT ---
CHEST CT SCAN WITH IV CONTRAST: Date: 08/08/17 HISTORY: 57-year-old male with history of lung cancer, malignant neoplasm, main bronchus. Patient is on blood thinners. History of brain tumor removal. COMPARISON: 03/20/17. FINDINGS: There has been interval development of a moderate size right pleural effusion, as well as some pleura l based parenchymal changes in the right lower lobe, probably atelectasis. This is a new finding from the prior study. There is again noted to be enlargement of the right paratracheal lymph node, now me asuring 2.1 x 2.4 cm, where it previously measured 1.6 x 2.3 cm. Again noted is a minimally enlarged right hilar lymph node, but stable. The left lung is clear. No liver metastasis. Stable renal cyst. IMPRESSION: Moderate interval developing right pleural effusion, as well as some pleural based parenchymal change s in the right lower lobe, consistent with some subsegmental atelectasis. Very slightly enlarging rig ht paratracheal lymph node and stable small right hilar lymph node. Stable bilateral renal cysts. No evidence for other significant acute process. POS: ELIEZER
[2017-08-08] MEDS ORDERED: Iopamidol 370 76% 100 ML VIAL ONE (13:07)
== END 2017-08-08 08:49 | disposition home or self-care (01) ==
LOC: CT 08:48
PROVIDERS: ATTEND Internal Medicine Hematology & Oncology
DX: C34.90 Malignant neoplasm of unspecified part of unspecified bronchus or lung (principal); J90 Pleural effusion, not elsewhere classified; N28.1 Cyst of kidney, acquired; R59.0 Localized enlarged lymph nodes
CPT/HCPCS: 71260

== ENCOUNTER 2017-08-11 10:03 | Inpatient (IN) | payer BC ==
[2017-08-11 10:39] LABS: #Lymphocytes 0.8 thou/uL (1.20-3.40); #Monocytes 0.5 thou/uL (0.11-0.59); #Neutrophils 5.2 thou/uL (1.40-6.50); %Basophils 0.3 % (0.0-1.0); %Eosinophils 0.2 % (0.0-10.0); %Lymphocytes 12.1 % (21.0-51.0); %Monocytes 7.4 % (0.0-10.0); Hemoglobin 11.5 g/dL (14.0-18.0); Mean Corpuscular HGB CONC 34.2 g/dL (32.0-36.0); Mean Corpuscular Hemoglobin 31.6 pg (27.0-31.0); Mean Corpuscular Volume 92.6 fl (80.0-94.0); Mean Platelet Volume 7.2 fL (7.4-10.4); Platelet Count 225 thou/uL (130-400); RBC Distribution Width 12.3 % (11.5-14.5); Red Blood Cell (RBC) Count 3.63 mill/uL (4.70-6.10); White Blood Cell (WBC) Count 6.5 thou/uL (4.8-10.8)
[2017-08-11 10:58] LABS: ALT (SGPT) 17 U/L (8-55); AST (SGOT) 13 U/L (5-34); Albumin 4.2 g/dL (3.5-5.0); Alkaline Phosphatase 60 U/L (40-150); Anion Gap 13 mmol/L (10-20); BUN (Urea Nitrogen) 11 mg/dL (8.4-25.7); Bilirubin, Total 1.1 mg/dL (0.2-1.2); Calc. Creatinine Clearance 0 mL/min (70-130); Calcium 9.2 mg/dL (7.8-10.44); Carbon Dioxide 24 mmol/L (22-29); Chloride 99 mmol/L (98-107); Estimated GFR-MDRD 88; Globulin 3.3 g/dL (2.4-3.5); Glucose 104 mg/dL (70-105); Potassium 3.6 mmol/L (3.5-5.1); Protein, Total 7.5 g/dL (6.0-8.3); Sodium 132 mmol/L (136-145)
[2017-08-11] MEDS ORDERED: Cefepime 2 GM, Syringe 2.5 ML in Sterile Water 10 ML SLOW IVP SCH (11:00)
[2017-08-11 11:08] LABS: Lactic Acid 1.7 mmol/L (0.5-2.2)
[2017-08-11] MEDS ORDERED: Ondansetron ODT 4 MG TAB ONE (11:27)
--- NOTE | 2017-08-11 11:44 | RAD ---
PORTABLE UPRIGHT FRONTAL CHEST RADIOGRAPH: Date: 08/11/17 COMPARISON: Chest CT dated 08/08/17. HISTORY: Fever. FINDINGS: There is a CT injectable right-sided Port-A-Cath, distal tip overlying the cavoatrial junction region . Left lung appears clear. There is no pneumothorax. There is hazy density in the right lung base which appears slightly more prominent than on the exam. There is also blunting of the right costophrenic angle. IMPRESSION: Hazy right basilar density with blunting of right costophrenic angle suggests nonspecific right pleur al fluid and air space disease/ volume loss within the right lower lobe. Findings may signify infecti ous pneumonitis. Recommend PA and lateral imaging of the chest following treatment to document resolu tion. POS: ELIEZER
[2017-08-11 11:55] LABS: Bilirubin Negative (Negative); Blood, Urine Small (Negative); Clarity CLEAR (Clear); Glucose, Urine (Dipstick) Negative (Negative); Leukocyte Negative (Negative); Nitrite Negative (Negative); Protein, Urine (Dipstick) Negative (Neg-Trace); Specific Gravity, Urine 1.024 (1.002-1.036); pH, Urine 5.5 (5.0-9.0)
[2017-08-11 11:57] LABS: Bacteria/HPF None Seen HPF (None Seen); Hyaline Casts/LPF 0-3 HYALINE CAST LPF (0-3 Hyaline); RBC/HPF 0-3 HPF (0-3); Squamous Epithelial None Seen HPF (0-3); WBC/HPF 0-3 HPF (0-3)
[2017-08-11] MEDS ORDERED: Pepto Bismol Chew TAB PO PRN (14:20)
[2017-08-11] MEDS ORDERED: Ondansetron HCl/PF 4 MG/2 ML Vial IVP PRN (14:20)
[2017-08-11] MEDS ORDERED: Sodium Chloride 0.9% 1,000 ML IV SCH (14:20)
[2017-08-11] MEDS ORDERED: Guaifenesin DM 100-10/5 ML UDCUP PO PRN (14:20)
[2017-08-11] MEDS ORDERED: Mag-Al 1200 mg/1200 mg/30 ML UDCUP PO PRN (14:20)
[2017-08-11] MEDS: Ferrous Sulfate 325 MG TAB PO SCH (16:44)
[2017-08-11] MEDS: Acetaminophen/Codeine 30-300mg Tablet PO PRN ×2 (16:45→23:44)
[2017-08-11 16:48] VITALS: BMI 30.7
[2017-08-11] MEDS: Acetaminophen 325 MG TAB PO PRN (20:57)
[2017-08-11] MEDS: Docusate 100 MG CAP PO SCH (20:58)
[2017-08-11] MEDS: Apixaban 5 MG TAB PO SCH (20:58)
[2017-08-11] MEDS: Famotidine 20 MG TAB PO SCH (20:58)
[2017-08-11] MEDS ORDERED: Cefepime 1 GM in Sodium Chloride 0.9% 100 ML IVPB SCH (21:00)
--- NOTE | 2017-08-11 23:20 | HP ---
REASON FOR ADMISSION: Possible pneumonia. HISTORY OF PRESENT ILLNESS: The patient gives history of waking up this morning with drenching sweats. He found out he had a temperature of 101.5 degrees. The patient has been coughing yellow sputum. He had some chest discomfort with coughing spells. As patient is on chemotherapy and prior history of clots, the patient came to emergency room to check it out. He has no complaints of shortness of breath at present. No complaints of palpitations , PND or orthopnea. 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 He has had history of pulmonary embolism detected in June and is on Eliquis for the same. He also apparently had pneumonia then and took antibiotics for it. 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 CURRENT MEDICATIONS: Takes Eliquis 5 mg twice daily, Tessalon Perles p.r.n., Tylenol with codeine #3 q.6 hourly p.r.n., Zantac p.r.n. ALLERGIES: IODINE. PERSONAL HISTORY: Quit smoking in 03/2014. He also quit alcohol at the same time. He does not abuse drugs. He lives with his . FAMILY HISTORY: Mother of pancreatic cancer at the age of 59. Father of heart failure and its complications at the age of 76 years. REVIEW OF SYSTEMS: The following complete review of systems was negative, unless otherwise mentioned in the HPI or below: Constitutional: Weight loss or gain, ability to conduct usual activities. Skin: Rash, itching. Eyes: Double vision, pain. ENT/Mouth: Nose bleeding, neck stiffness, pain, tenderness. Cardiovascular: Palpitations, dyspnea on exertion, orthopnea. Respiratory: Shortness of breath, wheezing, cough, hemoptysis, fever or night sweats. Gastrointestinal: Poor appetite, abdominal pain, heartburn, nausea, vomiting, constipation, or diarrhea. Genitourinary: Urgency, frequency, dysuria, nocturia. Musculoskeletal: Pain, swelling. Neurologic/Psychiatric: Anxiety, depression. Allergy/Immunologic: Skin rash, bleeding tendency. PHYSICAL EXAMINATION: GENERAL: The patient is a 57-year-old male who is currently not in any acute distress. VITAL SIGNS: Blood pressure 112/50, pulse 96 per minute, respiratory rate 16 per minute, temperature 99.6 degrees Fahrenheit, saturating 97% on room air. NECK: Supple, no elevated JVD. EYES: Extraocular muscles intact. Pupils reacting to light. Oral cavity, mucous membranes are dry. No exudates or congestion. CARDIOVASCULAR: S1, S2 heard. Regular rhythm. RESPIRATORY: Air entry 1+ bilateral. Scattered rhonchi plus bilateral. ABDOMEN: Soft, bowel sounds heard. No tenderness, rigidity or guarding. EXTREMITIES: No peripheral edema or calf tenderness. VASCULAR SYSTEM: Peripheral pulses 1+ bilateral, no ischemic ulcerations or gangrene. CENTRAL NERVOUS SYSTEM: No gross focal deficits seen. The patient is alert, awake, oriented well. PSYCHIATRIC: The patient's mood is euthymic. No hallucinations or delusions. LABORATORY AND X-RAY FINDINGS: Chest x-ray done shows hazy right basilar density with blunting of right costophrenic angle suggestive of possible pneumonitis with effusion. Sodium 132, BUN 11, creatinine 0.8, glucose 104. Liver enzymes within normal limits. Albumin is 4.2. Lactic acid is 1.7. White count of 6, H&H 11 and 33, platelet count is 225 with 80% neutrophils. CLINICAL IMPRESSION AND PLAN: The patient will be admitted to oncology floor for possible right lower lobe pneumonia with fever of 101.5 at home and 99.6 [address] here[address] We will place him on cefepime and Levaquin for now. We will obtain consultation with Dr. Spence, who has evaluated him in the past. Continue on DuoNebs q.6 hourly. We will continue his Eliquis, ferrous sulfate as before. The patient has had recent CT chest done on the 1st which showed developing right pleural effusion with parenchymal changes in the right lower lobe consistent with subsegmental atelectasis and in view of this, we will not repeat another CAT scan for now. We will continue to closely monitor him on oncology floor for any hemodynamic compromise. Code status was discussed with patient and he would like to be a FULL CODE for now. The patient also does mention that he is tired of taking Opdivo for now. MTDD
[2017-08-11] MEDS: Cefepime 1 GM, Admixture Fee 1 EACH in Sterile Water 10 ML SLOW IVP SCH (23:35)
[2017-08-12 04:15] LABS: #Eosinphils 0.1 thou/uL (0.0-0.7); #Lymphocytes 0.8 thou/uL (1.20-3.40); #Monocytes 0.5 thou/uL (0.11-0.59); #Neutrophils 4.1 thou/uL (1.40-6.50); %Eosinophils 1.5 % (0.0-10.0); %Lymphocytes 14.2 % (21.0-51.0); %Monocytes 9.8 % (0.0-10.0); %Neutrophils 74.5 % (42.0-75.0); Hemoglobin 9.9 g/dL (14.0-18.0); Mean Corpuscular HGB CONC 35.2 g/dL (32.0-36.0); Mean Corpuscular Hemoglobin 32.5 pg (27.0-31.0); Mean Corpuscular Volume 92.4 fl (80.0-94.0); Mean Platelet Volume 6.9 fL (7.4-10.4); Platelet Count 172 thou/uL (130-400); RBC Distribution Width 12.1 % (11.5-14.5); Red Blood Cell (RBC) Count 3.06 mill/uL (4.70-6.10); White Blood Cell (WBC) Count 5.5 thou/uL (4.8-10.8)
[2017-08-12 04:34] LABS: Anion Gap 11 mmol/L (10-20); BUN (Urea Nitrogen) 7 mg/dL (8.4-25.7); Calc. Creatinine Clearance 142 mL/min (70-130); Calcium 8.4 mg/dL (7.8-10.44); Carbon Dioxide 23 mmol/L (22-29); Chloride 101 mmol/L (98-107); Estimated GFR-MDRD Greater than 90; Glucose 108 mg/dL (70-105); Potassium 3.4 mmol/L (3.5-5.1); Sodium 132 mmol/L (136-145)
[2017-08-12] MEDS: Ferrous Sulfate 325 MG TAB PO SCH ×2 (08:45→17:59)
[2017-08-12] MEDS: Famotidine 20 MG TAB PO SCH ×2 (08:45→20:48)
[2017-08-12] MEDS: Docusate 100 MG CAP PO SCH ×2 (08:45→20:48)
[2017-08-12] MEDS: Acetaminophen 325 MG TAB PO PRN ×2 (08:48→20:51)
[2017-08-12] MEDS: Apixaban 5 MG TAB PO SCH ×2 (09:12→20:48)
--- NOTE | 2017-08-12 13:05 | PDOC.PN ---
- Subjective Encounter Start Date: 08/12/17 Encounter Start Time: 12:00 Subjective: c/o pain right lower rib cage on deep breaths/coughing -: no sob - Objective MAR Reviewed: Yes Vital Signs & Weight: Vital Signs (12 hours) Temp Pulse Resp BP BP Pulse Ox 08/12/17 11:47 97 08/12/17 11:15 98.8 F 88 16 99/62 95 08/12/17 09:42 85 16 92 L 08/12/17 08:00 99.0 F 85 16 96 08/12/17 07:35 100.8 F H 89 16 101/66 97 08/12/17 04:55 99.6 F 78 18 97/60 98 Weight Admit Weight 214 lb 4.8 oz Weight 214 lb 4.8 oz I&O: 08/11/17 08/12/17 08/13/17 06:59 06:59 06:59 Intake Total 730 Balance 730 Result Diagrams: 08/12/17 03:55 08/12/17 03:55 Phys Exam - Physical Examination HEENT: PERRLA, moist MMs Neck: no JVD, supple Respiratory: no wheezing, no rales Cardiovascular: RRR, no significant murmur Gastrointestinal: soft, non-tender, positive bowel sounds Musculoskeletal: no edema, pulses present Neurological: non-focal, moves all 4 limbs Psychiatric: normal affect, A&O x 3 Dx/Plan (1) Pneumonia involving right lung Code(s): J18.9 - PNEUMONIA, UNSPECIFIED ORGANISM Status: Acute Qualifiers: Pneumonia type: due to unspecified organism (2) Lung cancer Code(s): C34.90 - MALIGNANT NEOPLASM OF UNSP PART OF UNSP BRONCHUS OR LUNG Status: Chronic Comment: stage 4 (3) History of pulmonary embolism Code(s): Z86.711 - PERSONAL HISTORY OF PULMONARY EMBOLISM Status: Chronic (4) COPD (chronic obstructive pulmonary disease) Status: Chronic Qualifiers: COPD type: chronic bronchitis (5) Anemia Code(s): D64.9 - ANEMIA, UNSPECIFIED Status: Chronic Qualifiers: Anemia type: unspecified type Qualified Code(s): D64.9 - Anemia, unspecified Comment: iron levels low, No other source of Bkeeding noted.Will start Feroous sulphate 325mg BID. - Plan tmax of 100 -: is on cefepime and levaquin -: pulm consultation -: is on eliquis, nebs -: prognosis guarded, morphine prn for pleuritic pain * . Review of Systems - Medications/Allergies Allergies/Adverse Reactions: Allergies Allergy/AdvReac Type Severity Reaction Status Date / Time Iodinated Contrast- Oral and Allergy Mild ITCHING, Verified 04/22/16 11:51 IV Dye THROAT [Iodinated Contrast Media - TINGLING IV Dye] No Known Drug Allergies Allergy Verified 04/22/16 11:51 Medications: Current Medications Acetaminophen (Tylenol) 650 mg PO Q4H PRN PRN Reason: Headache/Fever or Pain Last Admin: 08/12/17 08:48 Dose: 650 mg Acetaminophen/Codeine Phosphate (Tylenol #3) 1 tab PO Q6HR PRN PRN Reason: Pain Last Admin: 08/11/17 23:44 Dose: 1 tab Al Hydroxide/Mg Hydroxide (Maalox) 30 ml PO Q6H PRN PRN Reason: Heartburn or Indigestion Albuterol/Ipratropium (Duoneb) 3 ml NEB [id number] [facility] Last Admin: 08/12/17 09:42 Dose: 3 ml Apixaban (Eliquis) 5 mg PO BID [facility] Last Admin: 08/12/17 09:12 Dose: 5 mg Bismuth Subsalicylate (Pepto Bismol) 2 tab PO Q1H PRN PRN Reason: Diarrhea/Loose Stools Docusate Sodium (Colace) 100 mg PO BID [facility] Last Admin: 08/12/17 08:45 Dose: 100 mg Famotidine (Pepcid) 20 mg PO BID [facility] Last Admin: 08/12/17 08:45 Dose: 20 mg Ferrous Sulfate (Feosol) 325 mg PO BID-[facility] Last Admin: 08/12/17 08:45 Dose: 325 mg Guaifenesin/Dextromethorphan (Robitussin Dm) 15 ml PO Q4H PRN PRN Reason: Cough Levofloxacin 500 mg/ Device 100 mls @ 100 mls/hr IVPB Q24HR ON [facility] OF [facility] Last Admin: 08/11/17 17:09 Dose: Not Given Cefepime HCl 1 gm/Miscellaneous Medication 1 each/ Sterile Water 10 mls @ 120 mls/hr SLOW IVP 1200,2359 [facility] Last Admin: 08/11/17 23:35 Dose: 10 mls Magnesium Hydroxide (Milk Of Magnesium) 30 ml PO DAILYPRN PRN PRN Reason: Constipation Methylprednisolone Sodium Succinate (Solu-Medrol) 40 mg IVP Q6HR [facility] Morphine Sulfate (Morphine) 2 mg IV Q4H PRN PRN Reason: CHEST PAIN/ELEVATED BP Ondansetron HCl (Zofran) 4 mg IVP Q6H PRN PRN Reason: Nausea/Vomiting Sodium Chloride (Flush - Normal Saline) 10 ml IVF Q12HR [facility] Sodium Chloride (Flush - Normal Saline) 10 ml IVF PRN PRN PRN Reason: Saline Flush
[2017-08-12] MEDS: Cefepime 1 GM, Admixture Fee 1 EACH in Sterile Water 10 ML SLOW IVP SCH (13:49)
[2017-08-12] MEDS: Morphine 4 MG/ML VIAL IV PRN ×2 (15:54→21:15)
--- NOTE | 2017-08-12 20:03 | CON ---
HISTORY OF PRESENT ILLNESS: He is a 57-year-old gentleman followed by Dr. Be, Dr. Spence who a pparently went to see his doctor, had a CAT scan done on 08/08/2017 which showed slightly increasing pleural effusion. He said he is not feeling well, came to the ER with a right-sided chest pain, feve r, chills, sweats, cough. His chest x-ray now shows a right-sided infiltrate, some blunting of the costophrenic angle, but no s izable pleural effusion. His x-ray from 06/23/2017 looked similar. His CAT scan dated in the first week of June also showed the similar density more pleural effusion, so the pleural effusion appears to be smaller now than the previous CAT scan. Since admission, he wa s started on broad-spectrum antibiotics. PAST MEDICAL HISTORY: Pertinent otherwise for metastatic neuroendocrine cancer, receiving treatment from [facility]. History of hypertension. History of recent diagnosis of pulmonary emboli. PAST SURGICAL HISTORY: Craniotomy. SOCIAL HISTORY: Tobacco none at this time. Alcohol none at this time. MEDICATIONS: Eliquis 5 mg twice a day, Zantac 150, Opdivo every 14 days. Since admission, started o n Levaquin, Maxipime, nebs treatment. REVIEW OF SYSTEMS: Ten point negative. PHYSICAL EXAMINATION: VITAL SIGNS: His blood pressure is 99/62, sats are 96%, temperature 98, respiratory rate 18, pulse 8 3. CHEST: Decreased breath sounds in the right lung. Left lung unremarkable. CARDIAC: Normal S1, S2, no gallops. ABDOMEN: Soft. No masses. LABORATORY DATA: White count 5000, H and H 9 and 28, platelet count 172. Sodium 132. Electrolytes are normal. IMPRESSION: 1. Recurrent right-sided pleuritic chest pain with pleural effusion. 2. Febrile illness. 3. Metastatic neuroendocrine tumor on Opdivo. PLAN: Agree with antibiotics, nebulizer treatments. I have added steroids. Effusion is too small f or thoracentesis at this stage. I will notify Dr. Spence, accepting. This is consultation note, 70 minutes of which 50% direct patient care index.
[2017-08-12] MEDS: Ondansetron ODT 4 MG TAB PO PRN (21:46)
[2017-08-13] MEDS: Cefepime 1 GM, Admixture Fee 1 EACH in Sterile Water 10 ML SLOW IVP SCH ×3 (00:37→12:35)
[2017-08-13] MEDS: HYDROcodone/Acetaminophen 5/325 mg Tablet PO PRN (00:44)
[2017-08-13] MEDS: Ondansetron ODT 4 MG TAB PO PRN ×2 (07:32→21:01)
[2017-08-13] MEDS: Ferrous Sulfate 325 MG TAB PO SCH ×2 (07:33→17:24)
[2017-08-13] MEDS: Docusate 100 MG CAP PO SCH ×2 (07:33→20:37)
[2017-08-13] MEDS: Famotidine 20 MG TAB PO SCH ×2 (07:33→20:37)
[2017-08-13] MEDS: Apixaban 5 MG TAB PO SCH ×2 (07:33→20:37)
--- NOTE | 2017-08-13 10:36 | PDOC.PN ---
- Subjective Encounter Start Date: 08/13/17 Encounter Start Time: 07:00 Pt seen for followup re: pneumonia. Denies chest pain, shortness of breath. Has cough, no sputum today. Had fever last night. - Objective MAR Reviewed: Yes Vital Signs & Weight: Vital Signs (12 hours) Temp Pulse Resp BP Pulse Ox 08/13/17 08:23 76 18 96 08/13/17 07:41 98.1 F 81 18 106/71 98 08/13/17 05:30 97.8 F 08/13/17 00:49 97 18 98 Weight Admit Weight 214 lb 4.8 oz Weight 214 lb 4.8 oz I&O: 08/12/17 08/13/17 08/14/17 06:59 06:59 06:59 Intake Total 730 Balance 730 Result Diagrams: 08/12/17 03:55 08/12/17 03:55 Additional Labs: Labs reviewed by me Phys Exam - Physical Examination Constitutional: NAD HEENT: PERRLA, moist MMs, sclera anicteric, oral pharynx no lesions Neck: supple, full ROM Respiratory: no wheezing, no rales, no rhonchi, clear to auscultation bilateral Diminished air entry R base Cardiovascular: no rub S1, S2, regular Gastrointestinal: soft, non-tender, no distention, positive bowel sounds Neurological: moves all 4 limbs Psychiatric: normal affect, A&O x 3 Skin: no rash Dx/Plan (1) Pneumonia involving right lung Code(s): J18.9 - PNEUMONIA, UNSPECIFIED ORGANISM Status: Acute Qualifiers: Pneumonia type: due to unspecified organism Comment: continue cefepime, levaquin. Pt spiked fever last night. Follow cultures. Swallow eval. (2) COPD (chronic obstructive pulmonary disease) Status: Chronic Qualifiers: COPD type: chronic bronchitis Comment: continue oxygen PRN, steroids and bronchodilators (3) Lung cancer Code(s): C34.90 - MALIGNANT NEOPLASM OF UNSP PART OF UNSP BRONCHUS OR LUNG Status: Chronic Comment: stage 4; Nil acute (4) History of pulmonary embolism Code(s): Z86.711 - PERSONAL HISTORY OF PULMONARY EMBOLISM Status: Chronic Comment: continue apixaban - Plan * . Review of Systems - Review of Systems Constitutional: fever, weakness. negative: chills, sweats, malaise Respiratory: Cough, Dry. negative: Shortness of Breath, Hemoptysis, SOB with Excertion, Sputum Cardiovascular: light headedness. negative: chest pain, palpitations, edema Gastrointestinal: negative: Nausea, Vomiting, Abdominal Pain, Diarrhea, Constipation Genitourinary: negative: Dysuria, Frequency, Incontinence, Hematuria, Retention Skin: negative: Rash, Lesions, Aric, Bruising - Medications/Allergies Allergies/Adverse Reactions: Allergies Allergy/AdvReac Type Severity Reaction Status Date / Time Iodinated Contrast- Oral and Allergy Mild ITCHING, Verified 04/22/16 11:51 IV Dye THROAT [Iodinated Contrast Media - TINGLING IV Dye] No Known Drug Allergies Allergy Verified 04/22/16 11:51 Medications: Current Medications Acetaminophen (Tylenol) 650 mg PO Q4H PRN PRN Reason: Headache/Fever or Pain Last Admin: 08/12/17 20:51 Dose: 650 mg Acetaminophen/Codeine Phosphate (Tylenol #3) 1 tab PO Q6HR PRN PRN Reason: Pain Last Admin: 08/11/17 23:44 Dose: 1 tab Hydrocodone Bitart/Acetaminophen ([place] 5/325) 1 tab PO Q6H PRN PRN Reason: Pain Last Admin: 08/13/17 00:44 Dose: 1 tab Al Hydroxide/Mg Hydroxide (Maalox) 30 ml PO Q6H PRN PRN Reason: Heartburn or Indigestion Albuterol/Ipratropium (Duoneb) 3 ml NEB [id number] [facility] Last Admin: 08/13/17 08:23 Dose: 3 ml Apixaban (Eliquis) 5 mg PO BID [facility] Last Admin: 08/13/17 07:33 Dose: 5 mg Bismuth Subsalicylate (Pepto Bismol) 2 tab PO Q1H PRN PRN Reason: Diarrhea/Loose Stools Docusate Sodium (Colace) 100 mg PO BID [facility] Last Admin: 08/13/17 07:33 Dose: 100 mg Famotidine (Pepcid) 20 mg PO BID [facility] Last Admin: 08/13/17 07:33 Dose: 20 mg Ferrous Sulfate (Feosol) 325 mg PO BID-[facility] Last Admin: 08/13/17 07:33 Dose: 325 mg Guaifenesin/Dextromethorphan (Robitussin Dm) 15 ml PO Q4H PRN PRN Reason: Cough Levofloxacin 500 mg/ Device 100 mls @ 100 mls/hr IVPB Q24HR [facility] Last Admin: 08/12/17 17:48 Dose: 100 mls Cefepime HCl 1 gm/Miscellaneous Medication 1 each/ Sterile Water 10 mls @ 120 mls/hr SLOW IVP 1200,2359 [facility] Last Admin: 08/13/17 00:48 Dose: 10 mls Magnesium Hydroxide (Milk Of Magnesium) 30 ml PO DAILYPRN PRN PRN Reason: Constipation Methylprednisolone Sodium Succinate (Solu-Medrol) 40 mg IVP Q6HR [facility] Last Admin: 08/13/17 05:08 Dose: 40 mg Morphine Sulfate (Morphine) 2 mg IV Q4H PRN PRN Reason: CHEST PAIN/ELEVATED BP Last Admin: 08/12/17 21:15 Dose: 2 mg Ondansetron HCl (Zofran) 4 mg IVP Q6H PRN PRN Reason: Nausea/Vomiting Ondansetron HCl (Zofran Odt) 4 mg PO Q4H PRN PRN Reason: Nausea/Vomiting Last Admin: 08/13/17 07:32 Dose: 4 mg Sodium Chloride (Flush - Normal Saline) 10 ml IVF Q12HR [facility] Last Admin: 08/13/17 07:33 Dose: 10 ml Sodium Chloride (Flush - Normal Saline) 10 ml IVF PRN PRN PRN Reason: Saline Flush
--- NOTE | 2017-08-13 15:32 | PRG ---
DATE OF SERVICE: 08/13/2017 SUBJECTIVE: This morning, his pain is improved, less fever, less chills. OBJECTIVE: VITAL SIGNS: Temperature 98, sats are 96% on room air, respiratory rate 18, pulse 76. CHEST: Decreased breath sounds in the right lung. Left lung unremarkable. CARDIAC: Normal S1, S2, no gallops. ABDOMEN: Soft. No masses. IMPRESSION: 1. Right lower lung pneumonia, pleural effusion. 2. Metastatic cancer. 3. Pulmonary embolism. PLAN: Patient appears to have improved. Continue steroids. Continue PT and supportive care.
[2017-08-13] MEDS: Milk Of Magnesia 30 ML UDCUP PO PRN (17:29)
[2017-08-14] MEDS: Cefepime 1 GM, Admixture Fee 1 EACH in Sterile Water 10 ML SLOW IVP SCH ×3 (00:10→23:42)
[2017-08-14] MEDS: HYDROcodone/Acetaminophen 5/325 mg Tablet PO PRN ×2 (00:25→14:31)
[2017-08-14] MEDS: Ferrous Sulfate 325 MG TAB PO SCH ×2 (08:14→17:46)
[2017-08-14] MEDS: Famotidine 20 MG TAB PO SCH ×2 (08:14→21:29)
[2017-08-14] MEDS: Docusate 100 MG CAP PO SCH ×2 (08:14→21:30)
[2017-08-14] MEDS: Milk Of Magnesia 30 ML UDCUP PO PRN (08:14)
[2017-08-14] MEDS: Apixaban 5 MG TAB PO SCH ×2 (08:17→21:29)
--- NOTE | 2017-08-14 10:01 | PQF ---
CLINICAL DOCUMENTATION IMPROVEMENT CLARIFICATION FORM: ICD-10 Updated PLEASE DO AN ADDENDUM TO THE PROGRESS NOTE WITH ANY DOCUMENTATION UPDATES OR ADDITIONS AND CARRY THROUGH TO DC SUMMARY. THANK YOU. DATE: 08/14 ATTN: DR. REILLY HERNANDEZ Please exercise your independent, professional judgment in responding to the clarification form. Clinical indicators are provided on the bottom of this form for your review Please check appropriate box(s): [ ] Aspiration Pneumonia [ ] Empirically treating Gram Negative Pneumonia [ ] Simple Pneumonia (community acquired - nosocomial) [ X ] Pneumonia of unknown etiology [ ] Other diagnosis [ ] Unable to determine For continuity of documentation, please document condition throughout progress notes and discharge summary. Thank You. CLINICAL INDICATORS - SIGNS / SYMPTOMS / LABS PHYSICIAN H&P DOCUMENTATION: CLINICAL IMPRESSION & PLAN: THE PT WILL BE ADMITTED TO ONCOLOGY FLOOR FOR POSSIBLE R LL PNEUMONIA W/FEVER OF 101.5 AT HOME & 99.6 HERE. WE WILL PLACE HIM ON CEFEPIME & LEVAQUIN FOR NOW PN 08/12 & 6: DX/PLAN: 1) PNEUMONIA INVOLVING R LUNG, UNSPECIFIED ORGANISM. IS ON CEFEPIME & LEVAQUIN PULMONOLOGY PN 08/13: IMPRESSION: 1) R LOWER LUNG PNEUMONIA RISK FACTORS: IMMUNOCOMPROMISED STAGE IV LUNG CANCER ON CHEMO TREATMENTS: IV ANTIBIOTICS (CEFEPIME 5/4 - PRESENT; LEVAQUIN 5/4 - 5 THEN CHANGED TO PO LEVAQUIN) SPEECH CONSULT PULMONOLOGY CONSULT THANK YOU! Ludy (This form is maintained as a part of the permanent medical record) 2014 [employer]. All Rights Reserved Ludy Steinberg RN, BSN [email or web address] Office: [phone] [facility]
--- NOTE | 2017-08-14 10:20 | PDOC.PN ---
- Subjective Encounter Start Date: 08/14/17 Encounter Start Time: 07:00 Pt seen for followup re: pneumonia. Reports cough, sputum. R sided chest pain with coughing. - Objective MAR Reviewed: Yes Vital Signs & Weight: Vital Signs (12 hours) Temp Pulse Resp BP BP Pulse Ox 08/14/17 08:21 97.9 F 83 18 116/80 97 08/14/17 08:00 97.9 F 83 18 97 08/14/17 06:24 78 12 08/14/17 00:53 80 16 96 08/14/17 00:17 97.8 F 86 16 110/70 96 Weight Admit Weight 214 lb 4.8 oz Weight 214 lb 4.8 oz Result Diagrams: 08/12/17 03:55 08/12/17 03:55 Phys Exam - Physical Examination Obese HEENT: moist MMs, sclera anicteric, oral pharynx no lesions, 2+ tonsils Neck: supple Respiratory: no wheezing, no rales, no rhonchi, clear to auscultation bilateral Cardiovascular: RRR, no rub S1, S2, reg Gastrointestinal: soft, non-tender, no distention, positive bowel sounds Musculoskeletal: edema present Neurological: moves all 4 limbs Psychiatric: normal affect Skin: no rash Dx/Plan (1) Pneumonia involving right lung Code(s): J18.9 - PNEUMONIA, UNSPECIFIED ORGANISM Status: Acute Qualifiers: Pneumonia type: due to unspecified organism Comment: continue cefepime, levaquin. No fevers overnight. Follow cultures. Swallow eval pending. (2) COPD (chronic obstructive pulmonary disease) Status: Chronic Qualifiers: COPD type: chronic bronchitis Comment: Stable, continue PRN oxygen, steroids, bronchodilators (3) Lung cancer Code(s): C34.90 - MALIGNANT NEOPLASM OF UNSP PART OF UNSP BRONCHUS OR LUNG Status: Chronic Comment: to followup with oncology as outpatient (4) History of pulmonary embolism Code(s): Z86.711 - PERSONAL HISTORY OF PULMONARY EMBOLISM Status: Chronic Comment: on apixaban, continue - Plan * . Review of Systems - Review of Systems Constitutional: sweats. negative: fever, chills, weakness, malaise Respiratory: Cough, SOB with Excertion, Pleuritic Pain, Sputum. negative: Dry, Shortness of Breath, Wheezing Cardiovascular: light headedness. negative: chest pain, palpitations, orthopnea , paroxysmal nocturnal dyspnea, edema Gastrointestinal: negative: Nausea, Vomiting, Abdominal Pain, Diarrhea, Constipation, Melena, Hematochezia Genitourinary: negative: Dysuria, Frequency, Incontinence, Hematuria, Retention Skin: negative: Rash, Lesions, Aric, Bruising - Medications/Allergies Allergies/Adverse Reactions: Allergies Allergy/AdvReac Type Severity Reaction Status Date / Time Iodinated Contrast- Oral and Allergy Mild ITCHING, Verified 04/22/16 11:51 IV Dye THROAT [Iodinated Contrast Media - TINGLING IV Dye] No Known Drug Allergies Allergy Verified 04/22/16 11:51 Medications: Current Medications Acetaminophen (Tylenol) 650 mg PO Q4H PRN PRN Reason: Headache/Fever or Pain Last Admin: 08/12/17 20:51 Dose: 650 mg Acetaminophen/Codeine Phosphate (Tylenol #3) 1 tab PO Q6HR PRN PRN Reason: Pain Last Admin: 08/11/17 23:44 Dose: 1 tab Hydrocodone Bitart/Acetaminophen ([place] 5/325) 1 tab PO Q6H PRN PRN Reason: Pain Last Admin: 08/14/17 00:25 Dose: 1 tab Al Hydroxide/Mg Hydroxide (Maalox) 30 ml PO Q6H PRN PRN Reason: Heartburn or Indigestion Albuterol/Ipratropium (Duoneb) 3 ml NEB [id number] [facility] Last Admin: 08/14/17 06:24 Dose: 3 ml Apixaban (Eliquis) 5 mg PO BID [facility] Last Admin: 08/14/17 08:17 Dose: 5 mg Bismuth Subsalicylate (Pepto Bismol) 2 tab PO Q1H PRN PRN Reason: Diarrhea/Loose Stools Docusate Sodium (Colace) 100 mg PO BID [facility] Last Admin: 08/14/17 08:14 Dose: 100 mg Famotidine (Pepcid) 20 mg PO BID [facility] Last Admin: 08/14/17 08:14 Dose: 20 mg Ferrous Sulfate (Feosol) 325 mg PO BID-[facility] Last Admin: 08/14/17 08:14 Dose: 325 mg Guaifenesin/Dextromethorphan (Robitussin Dm) 15 ml PO Q4H PRN PRN Reason: Cough Cefepime HCl 1 gm/Miscellaneous Medication 1 each/ Sterile Water 10 mls @ 120 mls/hr SLOW IVP 1200,2359 [facility] Last Admin: 08/14/17 00:10 Dose: 10 mls Levofloxacin (Levaquin) 500 mg PO 1600 [facility] Last Admin: 08/13/17 17:24 Dose: 500 mg Magnesium Hydroxide (Milk Of Magnesium) 30 ml PO DAILYPRN PRN PRN Reason: Constipation Last Admin: 08/14/17 08:14 Dose: 30 ml Methylprednisolone Sodium Succinate (Solu-Medrol) 40 mg IVP DAILY [facility] Last Admin: 08/14/17 08:14 Dose: 40 mg Morphine Sulfate (Morphine) 2 mg IV Q4H PRN PRN Reason: CHEST PAIN/ELEVATED BP Last Admin: 08/12/17 21:15 Dose: 2 mg Ondansetron HCl (Zofran) 4 mg IVP Q6H PRN PRN Reason: Nausea/Vomiting Ondansetron HCl (Zofran Odt) 4 mg PO Q4H PRN PRN Reason: Nausea/Vomiting Last Admin: 08/13/17 21:01 Dose: 4 mg Sodium Chloride (Flush - Normal Saline) 10 ml IVF Q12HR [facility] Last Admin: 08/14/17 08:14 Dose: 10 ml Sodium Chloride (Flush - Normal Saline) 10 ml IVF PRN PRN PRN Reason: Saline Flush
--- NOTE | 2017-08-14 10:49 | PRG ---
DATE OF SERVICE: 08/14/2017 The patient and his are both somewhat upset that he has developed pneumonitis symptoms so quickl y after a similar bout about 2 months ago. He had actually gone back on the Opdivo and had taken a d ose before coming to the hospital with fever. He still feels poorly today, but on exam, He has not h ad any fever in the last 24 hours. PHYSICAL EXAMINATION: VITAL SIGNS: Temperature is 97.9, pulse 83, respirations 18, O2 saturation 97%, blood pressure 116/8 0. HEENT: Unremarkable. NECK: No adenopathy or JVD. LUNGS: Fairly clear without wheezing or rhonchi. CARDIAC: S1 and S2 regular. ABDOMEN: Soft. EXTREMITIES: No edema. I reviewed a CT of the chest from 08/08/2017. His pleural effusion on the most recent scan is actual ly reduced in size compared to June and he definitely has less in the way of areas of pneumonitis co mpared to last time. ASSESSMENT: 1. I suspect we may be dealing with a drug reaction to is Opdivo than pneumonitis. The effusion is small and is definitely better compared to last hospitalization. 2. Metastatic neuroendocrine tumor. 3. Pulmonary embolism. RECOMMENDATION: 1. I would get his Oncology Team involved. The family has a lot of questions regarding medications and further treatment for his cancer as well as further scanning workup. 2. Would not tap the effusion as it is small. 3. Would convert to oral antibiotics tomorrow. 4. Continue anticoagulation for PE.
[2017-08-14] MEDS ORDERED: Magnesium Citrate 300 ML BOT PO SCH (15:00)
--- NOTE | 2017-08-15 00:19 | CON ---
DATE OF CONSULTATION: 08/14/2017 REASON FOR CONSULTATION: Lung cancer. HISTORY OF PRESENT ILLNESS: Mr. 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 He was diagnosed in 2014 and has currently been get ting Opdivo immunotherapy. His last dose was on 07/27/2017. In June, he had hospitalization for pn eumonia and pulmonary embolism. He was started on anticoagulation and has had antibiotics and improv ement of his pleural effusion. He did have a CT scan on 08/08, which showed a small right pleural ef fusion with minimal change in adenopathy. There are no new findings worrisome for progressive malign nikky. He was started on Levaquin on 08/10 for fever. He continued to be febrile and feel poorly, so presented to the emergency room for evaluation on the . Chest x-ray performed in the emergency r oom confirmed the hazy density in the right lower lobe. He was started on empiric antibiotics and tafoya s been seen by Dr. Spence. The effusion is too small to tap. The patient has received 2 doses of O pdivo since his prior hospitalization. Currently, he complains of cough. No shortness of breath. N o hemoptysis. He has constipation and is currently drinking magnesium citrate. PAST MEDICAL HISTORY: 1. Neuroendocrine carcinoma. 2. Pulmonary embolism. 3. Hypertension. 4. Hyperlipidemia. PAST SURGICAL HISTORY: Left frontal craniotomy for metastatic disease. ALLERGIES: To IODINE. HOME MEDICATIONS: 1. Tylenol #3 p.r.n. 2. Eliquis 10 mg b.i.d. 3. Iron 325 b.i.d. 4. Ranitidine 75 mg daily. FAMILY HISTORY: His mother had pancreatic cancer. SOCIAL HISTORY: , has 3 children, lives with his spouse. He is a former smoker. No alcohol or illicit drug use. REVIEW OF SYSTEMS: Constitutional: Positive for fever, chills, night sweats and fatigue. Eyes: No blurred or double vision. ENT: No pain, hoarseness, sore throat, or dysphagia. Cardiovascular: N o chest pain, palpitations or syncope. Respiratory: Positive for cough. No hemoptysis or significa nt short of breath. Gastrointestinal: No nausea, vomiting, diarrhea. Positive for constipation. G enitourinary: No dysuria or hematuria. Musculoskeletal: No joint or back pain. Skin: No rash or pruritus. Hematological: Positive for weakness. No headache, numbness, tingling or seizure activit y. Psychiatric: No anxiety or depression. PHYSICAL EXAMINATION: VITAL SIGNS: Temperature 97.9, pulse is 81, respiratory rate 16, BP is 116/80, 97% on room air. GENERAL: Well-developed, well-nourished male in no acute distress. HEENT: Normocephalic, atraumatic. Pupils equal and reactive to light. NECK: Supple. HEART: Regular rate and rhythm. LUNGS: Have crackles in the right base, posterior. ABDOMEN: Soft, nontender, bowel sounds are positive. EXTREMITIES: No clubbing, cyanosis or edema. SKIN: No rash. HEMATOLOGIC: No petechia or purpura. NEUROLOGICAL: Nonfocal. PSYCHIATRIC: The patient is alert and oriented and appropriate. PERTINENT LABORATORY AND X-RAYS: Current WBCs are 5.5, hemoglobin 9.9, hematocrit 28.3, platelet cou nt 172,000, 75% neutrophils, 14% lymphocytes. Sodium is 132, potassium 3.5, chloride 101, CO2 is 23, BUN is 7, creatinine 0.79, uric acid is 8.4, total bilirubin is 1.1, AST is 13, ALT is 17, alkaline phosphatase is 60. Serum total protein is 7.5, albumin 4.2, globulin 3.3. Radiology per HPI. ASSESSMENT: 1. Neuroendocrine carcinoma, suspect lung primary. 2. Febrile illness, possible pneumonia. 3. Improving pleural effusion. 4. History of pulmonary embolism. DISCUSSION: The patient's last Opdivo was 07/27/2017. The patient has been asked to resume secondar y to myalgias after treatment; however, he has received 2 cycles since his prior admission in June. Further management for pulmonary issues will be depended by Dr. Spence. The pleural effusion is to o small to tap to determine whether this is malignant or inflammatory; however, CT scan has much impr cameron since June plus he has received 2 doses of Opdivo, so unclear if it is progression of disease. He had a long conversation with Dr. Be on , about treatment options; however, his was not present and he is unable to tell her what was discussed. We will ask Dr. Be to discuss with the at some point or they allow to follow up in the outpatient setting. I would continue h is anticoagulation at this time. Thank you for the consult.
[2017-08-15 08:22] VITALS: BP 102/58; TEMP 98.2
[2017-08-15] MEDS ORDERED: Cefdinir 300 MG CAP PO SCH (09:00)
[2017-08-15] MEDS ORDERED: predniSONE 20 MG TAB PO SCH (09:00)
[2017-08-15] MEDS: Docusate 100 MG CAP PO SCH (09:02)
[2017-08-15] MEDS: Ferrous Sulfate 325 MG TAB PO SCH ×2 (09:02→17:08)
[2017-08-15] MEDS: Famotidine 20 MG TAB PO SCH (09:03)
[2017-08-15] MEDS: HYDROcodone/Acetaminophen 5/325 mg Tablet PO PRN (09:03)
--- NOTE | 2017-08-15 09:07 | PRG ---
DATE OF SERVICE: 08/15/2017 The patient is doing well without complaint other than some mild midsternal chest pain. PHYSICAL EXAMINATION: VITAL SIGNS: Temperature 98.2, pulse 82, respirations 18, O2 sat 98%, blood pressure 102/58. HEENT: Unremarkable. NECK: No JVD. CHEST: Clear without wheezing or rhonchi. CARDIAC: S1 and S2 regular. ABDOMEN: Soft. EXTREMITIES: No edema. ASSESSMENT: 1. Febrile illness at the time of admission. I have carefully compared the most recent CT from CT i n June and the pneumonitis is essentially gone. He has a small rim of pleural fluid which is actual ly better than June. Based on this I do not think he has pneumonia. 2. Metastatic neuroendocrine tumor 3. History of pulmonary embolism. PLAN: Scale down steroids and convert to p.o. antibiotics. I think he can probably go home. He is to continue with his Eliquis.
[2017-08-15] MEDS: Apixaban 5 MG TAB PO SCH (09:08)
--- NOTE | 2017-08-15 14:35 | DIS ---
DATE OF ADMISSION: 08/11/2017 DATE OF DISCHARGE: 08/15/2017 PRIMARY CARE PROVIDER: None. DISCHARGE DIAGNOSIS: Pneumonia of unknown etiology. CONDITION OF PATIENT ON THE DAY OF DISCHARGE: Stable. I assessed Mr. Alejandro on the day of disch arge. He denies any chest pain or shortness of breath. Cough is better. PHYSICAL EXAMINATION: VITAL SIGNS: Stable. HEART: S1 and S2 are heard, regular. LUNGS: Clear to auscultation bilaterally. DISCHARGE MEDICATIONS: Tylenol #3 p.r.n., apixaban 5 mg 2 times a day, benzonatate p.r.n., Omnicef 6 00 mg daily for 7 days, cetirizine 10 mg as needed, ferrous sulfate 325 mg 2 times a day, Medrol Dose alicia, ranitidine 75 mg daily, Zantac 150 mg as needed. Patient will discuss Opdivo use with his oncol ogist. CONSULTATIONS DURING THIS HOSPITALIZATION: Pulmonology, Dr. Grullon and Oncology, Dr. Be. HOSPITAL COURSE: Mr. Alejandro is a pleasant 57-year-old gentleman who was admitted to [facility] on 08/11/2017 for suspected pneumonia. He was treated with antibiotics. He al so received steroids and bronchodilators for COPD. He was seen by Pulmonology Service. He improved clinically. It was unclear whether this was pneumonia from an infectious etiology or secondary to Op divo PDA. Pulmonology Service consulted Medical Oncology Service. The patient will follow up with M edical Oncology Service for discussion about treatment options. He is being discharged home on taper ing steroids and antibiotics. DISCHARGE DESTINATION: Home. TOTAL AMOUNT OF TIME SPENT COORDINATING THIS DISCHARGE: 32 minutes.
== END 2017-08-15 17:17 | disposition home or self-care (01) | DRG 194 ==
LOC: ERS 10:03 → ONC 14:44
PROVIDERS: ADMIT Internal Medicine; ATTEND Internal Medicine
DX: J18.9 Pneumonia, unspecified organism (principal); C34.90 Malignant neoplasm of unspecified part of unspecified bronchus or lung; Z79.899 Other long term (current) drug therapy; Z92.21 Personal history of antineoplastic chemotherapy; E78.5 Hyperlipidemia, unspecified; I10 Essential (primary) hypertension; Z79.01 Long term (current) use of anticoagulants; Z79.891 Long term (current) use of opiate analgesic; Z87.891 Personal history of nicotine dependence; Z91.048 Other nonmedicinal substance allergy status; F41.9 Anxiety disorder, unspecified; F32.9 Major depressive disorder, single episode, unspecified; Z86.711 Personal history of pulmonary embolism; K59.00 Constipation, unspecified
CPT/HCPCS: 36415; 71045; 80048; 80053; 81003; 81015; 83605; 85025; 85379; 87040; 87070; 87086; 87205; 93005; 94640; A4216; G8996-GN-CH; G8997-GN-CH; J0692; J1642; J1956; J2270; J2920; J3370; J7506; J7620; Q0162

== ENCOUNTER 2017-09-28 13:04 | Outpatient (CLI) | payer MEDICARE, OTHER ==
--- NOTE | 2017-09-29 09:55 | PET ---
PET CT FROM SKULL BASE TO MID THIGH: Date: 09/28/17 INDICATION: History of lung cancer with metastatic disease to the brain. TECHNIQUE: Multiple PET images were obtained from the skull base to the mid-thigh following IV administration of 10.7 mCi F18-FDG IV. CT images were obtained for attenuation correction purposes only. Comparison made with CT of the thorax performed at [facility] dated 03/20/17 and 08/08/17. Comparison made with prior PET CT dated 02/06/16. FINDINGS: The biodistribution for the examination appears acceptable. Head/Neck: There is a new, enlarged, 2.25 cm, right Level IIA lymph node with peak SUV value of 15.92 and a mean value of 12.32, which was not present on the prior PET exam. The previously seen hypermetabolic Level IIA lymph node is stable in size measuring approximately 1.1 cm with a peak SUV value of 3.27. This has diminished from prior peak SUV value of 7.16 on the alexis rison exam. There has been interval enlargement of a left Level III lymph node now measuring 1.3 cm with a peak S UV value of 6.2 and a mean value of 4.37, where previously the lymph node measured 7.0 mm with a peak uptake of 5.01. An additional hypermetabolic left Level III lymph node is seen and appears grossly s table in size with a peak SUV value of 4.46 and a mean value of 3.18. Previously, the lymph node had a peak uptake of 6.56. There is mild increased radiotracer uptake in left Level IV lymph nodes that appear roughly stable in size. There are some mildly prominent right Level III lymph nodes that have enlarged from the compar montse exam now measuring 9.0 mm with a maximum uptake of 1.34. THORAX: There is a hypermetabolic right paratracheal lymph node that is decreased in size, now measuring 1.3 cm, where it previously measured 1.7 cm. The peak SUV uptake with the right paratracheal lymph node o n today's examination is 7.97 with a mean value of 5.57. Previously, the peak uptake associated with this lymph node was 11.59. There is a hypermetabolic right suprahilar lymph node that has decreased in size, now measuring 1.1 c m, where it previously measured 2.4 cm. The peak uptake associated with this right suprahilar lymph n ode is 10.27 with a mean value of 6.62, where previously the peak uptake was 4.36. The previously seen hypermetabolic left infrahilar lymph node is no longer identified. There is a loculated right-sided pleural effusion that is moderate in size. There is suspicion for at electasis within the right lower lobe. Within a component of the atelectasis, within the posterolater al right lower lobe, there are foci of hypermetabolic uptake measuring up to 5.74. There is a new 1.0 cm lymph node seen within the right epicardial fat pad which was not present on th e comparison examination with a peak uptake of 1.8. There are additional small nodules seen within th e right epicardial fat pad suspicious for enlarging lymph nodes. Most of these are below PET resoluti on threshold. ABDOMEN/PELVIS: There is a mildly prominent right retrocrural lymph node adjacent to the aorta measuring up to 5.0 mm , which is new from the prior examination, with mild increased uptake measuring up to 2.16. Additiona l mildly prominent retrocrural lymph nodes are present which are below PET resolution threshold. Ther e are a few shotty appearing mildly prominent lymph nodes that have developed within the upper abdome n, particularly within the gastrohepatic, portocaval, and periportal region, largest measures up to 1 .0 cm within the periportal region with a peak uptake of 1.84 and a mean uptake of 1.84 and a mean up take of 1.64. There are stable bilateral renal cysts. No definite malignant ascites is noted. Skin/Osseous Structures: There is a mildly complex fat density mass lesion within subcutaneous tissues overlying the right ing uinal region measuring up to 6.34 cm, which is stable in size from the comparison examination. There are some septations with associated calcifications within this lesion and findings are suspicious [place] t this represents a small atypical lipoma. There is no associated hypermetabolic activity with this l esion. No hypermetabolic osseous lesions is identified. IMPRESSION: 1. Findings of mixed response to therapy. 2. There has been some improvement in hypermetabolic lymphadenopathy seen within the mediastinum and left aspect of the neck; however, there are areas of worsening hypermetabolic lymphadenopathy involv ing the right neck with suspicion for malignant lymph node spread of disease into the retrocrural reg ion and upper abdomen. A majority of the intervally enlarged lymph nodes within the retrocrural regio n and upper abdomen are small and below PET resolution threshold, but are increased in size from the comparison exam. 3. There is moderate loculated right-sided pleural effusion with suspected right basilar atelectasis ; however, there has been interval development of patchy areas of hypermetabolic activity involving t he posterolateral segment of the right lower lobe. This could be related to a superimposed infectious process such as pneumonia; however, metastatic disease is not excluded. Follow-up is recommended. Wo uld recommend consideration for sampling of the loculated right-sided pleural effusion or malignant c ells. 4. Stable in size atypical lipomatous lesion involving the right inguinal region. The lesion is fat density with some internal septations and calcifications. This is atypical for a simple lipoma and is suspicious for possibly an atypical lipoma or well differentiated liposarcoma. Recommend considerati on for surgical referral and removal. POS: ELIEZER
== END 2017-09-28 13:05 | disposition home or self-care (01) ==
LOC: PET 13:04
PROVIDERS: ATTEND Internal Medicine Hematology & Oncology
DX: C34.91 Malignant neoplasm of unspecified part of right bronchus or lung (principal); R19.09 Other intra-abdominal and pelvic swelling, mass and lump; J90 Pleural effusion, not elsewhere classified; R59.0 Localized enlarged lymph nodes
CPT/HCPCS: 78815; A9552

== ENCOUNTER 2018-01-23 13:08 | Outpatient (CLI) | payer MEDICARE, OTHER ==
--- NOTE | 2018-01-23 16:57 | PET ---
PET WITH CT IMAGING SKULL TO MID THIGH: COMPARISON: 09/28/2017. CLINICAL HISTORY: Lung cancer, metastatic disease to the brain, followup imaging. RADIOPHARMACEUTICAL: 12.2 mCi fluorine 18 FDG IV. FINDINGS: There is redemonstration of bilateral adenopathy of the neck, which is more pronounced on the right, with an SUV maximum of approximately 13.3. SUV max of the smaller left neck lymph nodes measures up to an SUV of 5.1. The previously described retrocrural lymph nodes have decreased in volume. There is no obvious hypermetabolic activity localizing to these lymph nodes. Right hilar adenopathy with a n SUV maximum of 7.1 has decreased in both size/number and metabolic activity. T here is no hypermeta bolic mass or adenopathy within the abdomen and pelvis. There has been interval improvement of pleural fluid and adjacent consolidation of the right lung wit h a mild volume remaining. There is adjacent ground-glass opacity of the right lower lobe. Previously described complex lipomatous lesion of the ventral right hemipelvis is grossly stable, wit h redemonstration of internal thin septations and multifocal small calcifications. Multiple cystic, hypodense structures of each kidney are grossly stable by noncontrast assessment. T here are no hypermetabolic osseous metastatic lesions identified. IMPRESSION: 1. Interval improvement with regard to adenopathy of the right hilar region. Bilateral adenopathy o f the neck is grossly stable. 2. There are no new metastatic foci identified. 3. Interval improvement with regard to complex right pleural effusion, which has decreased in volume with mild residua remaining. POS: ELIEZER
== END 2018-01-23 13:09 | disposition home or self-care (01) ==
LOC: PET 13:08
PROVIDERS: ATTEND Internal Medicine Hematology & Oncology
DX: C34.90 Malignant neoplasm of unspecified part of unspecified bronchus or lung (principal); R59.0 Localized enlarged lymph nodes; J90 Pleural effusion, not elsewhere classified
CPT/HCPCS: 78815; A9552

== ENCOUNTER 2018-03-29 07:48 | Outpatient (CLI) | payer MEDICARE ==
--- NOTE | 2018-03-29 13:23 | PET ---
PET CT: HISTORY: 57-year-old male with lung cancer, metastatic to the brain. Exam requested for restaging. Patient is underlying chemotherapy. TECHNIQUE: PET scanning with CT attenuation correction was performed from the base of the brain through the prox imal thighs following the intravenous administration of 12.7 mCi F18-FDG in the left antecubital lily a. COMPARISON: PET CT dated 01/23/18. FINDINGS: There is continued kulwant hypermetabolism in the neck and right hilum. There is interval increase in t he metabolic activity and SUV since the last exam with a maximum SUV of 20.2 in the right upper neck (previously 13.3), 15.4 in the left lower neck (previously 5.1), and 12.1 in the right hilum (previou sly 7.1). No new hypermetabolic lymph nodes are seen in the neck, chest, abdomen, or pelvis. No hypermetabolic pulmonary nodules, liver, adrenal, or skeletal lesions are seen. There is physiologic activity in the GI and tracts, and the visualized portions of the brain. The small right pleural effusion is again seen with adjacent atelectatic change/consolidation. The previously described complex lipomatous lesion in the ventral right hemipelvis is stable with red emonstration of internal thin septations and multifocal small calcifications. Bilateral renal cysts a re again seen. IMPRESSION: Interval increase in metabolic activity in the previously noted lymph nodes in the neck and right hil um since 01/23/18. This may either be due to worsening of metastatic disease or reactive changes to t reatment. No new lesions are identified. POS: ELIEZER
== END 2018-03-29 07:49 | disposition home or self-care (01) ==
LOC: PET 07:48
PROVIDERS: ATTEND Internal Medicine Hematology & Oncology
DX: C34.90 Malignant neoplasm of unspecified part of unspecified bronchus or lung (principal)
CPT/HCPCS: 78815; A9552